=== PATIENT | female | born 1975 | race Caucasian/White ===

== ENCOUNTER 2018-12-20 15:29 | Inpatient (IN) ==
[2018-12-20] MEDS ORDERED: Calcium Gluconate 2,000 MG in 0.9 % Sodium Chloride 100 ML IVPB STA (15:43)
[2018-12-20] MEDS ORDERED: Sodium Bicarbonate 150 MEQ in 0.45 % Sodium Chloride 1,000 ML IVC SCH ×2 (15:45→23:45)
[2018-12-20] MEDS ORDERED: 0.9 % Sodium Chloride 1,000 ML IVC ONE (16:14)
[2018-12-20] MEDS ORDERED: 0.9 % Sodium Chloride 1,000 ML ONE (16:19)
[2018-12-20 16:20] LABS: Basophils % 0.3 %; Eosinophils # 0.1 K/mcL (0.0-0.6); Eosinophils % 1.7 %; Hemoglobin 11.4 g/dL (11.5-15.4); Immature Granulocytes % 0.5 % (0-4); Lymphocytes # 1.7 K/mcL (0.6-4.6); Lymphocytes % 28.1 %; Mean Corpuscular HGB Conc 32.6 g/dL (31.6-35.5); Mean Corpuscular Hemoglobin 28.4 pg (28.0-33.3); Mean Corpuscular Volume 87.3 fL (83.0-100.0); Mean Platelet Volume 8.9 fL (9.4-12.4); Monocytes # 0.3 K/mcL (0.0-1.3); Monocytes % 5.4 %; Neutrophils # 3.8 K/mcL (1.6-8.9); Platelet Count 215 K/mcL (140-400); Red Blood Count 4.01 M/mcL (3.82-4.97); Red Cell Distribution Width 13.6 % (11.5-14.5)
[2018-12-20 16:27] LABS: VBG HCO3 23 mEq/L (21-27); VBG PCO2 52 mmHg (41-51); VBG PH 7.26 pH Units (7.32-7.42); VBG PO2 213 mmHg (25-50)
[2018-12-20 16:27] LABS: INR 1.1
[2018-12-20 16:30] LABS: Activated Partial Thrombo Time 31.2 Seconds (26.0-36.0)
[2018-12-20 16:39] LABS: Acetaminophen < 10 mcg/mL (10-20); Salicylate < 2.5 mg/dL (15.0-30.0)
[2018-12-20 16:42] LABS: BUN/Creatinine Ratio 16 (6-26); Blood Urea Nitrogen 9 mg/dL (6-20); Carbon Dioxide 23 mEq/L (23-29); Chloride 110 mEq/L (98-107); Potassium 3.2 mEq/L (3.5-5.1); Sodium 143 mEq/L (136-145)
[2018-12-20 16:43] LABS: Alanine Aminotransferase 13 Units/L (7-52); Albumin 3.5 g/dL (3.5-5.7); Albumin/Globulin Ratio 1.8 (1.1-2.2); Alkaline Phosphatase 55 Units/L (34-104); Aspartate Amino Transferase 11 Units/L (13-39); Bilirubin,Indirect 0.2 mg/dL (0.0-1.2); Bilirubin,Total 0.2 mg/dL (0.3-1.0); Creatine Kinase 92 Units/L (30-223); Ethanol 56 mg/dL (Less than 10); Glucose 127 mg/dL (70-105); Osmolality,Calculated 296 (280-300); Total Protein 5.5 g/dL (6.4-8.9); eGFR For Non-African Americans > 60 (> 60)
[2018-12-20 16:50] LABS: Bilirubin,Urine Negative (Negative); Blood,Urine Negative (Negative); Clarity,Urine Clear (Clear); Color,Urine Yellow (Yellow); Glucose,Urine (UA) Normal (Normal); Ketones,Urine Negative (Negative); Leukocyte Esterase,Urine Negative (Negative); Nitrite,Urine Negative (Negative); Protein,Urine Negative (Neg-Trace); Urobilinogen,Urine Normal (Normal)
[2018-12-20] MEDS: Norepinephrine 4 MG in D5% in Water 250 ML IVC SCH (16:50)
[2018-12-20 16:55] LABS: Thyroid Stimulating Hormone 2.285 mcIU/mL (0.340-5.600)
[2018-12-20 17:03] LABS: Amphetamine Screen,Urine Negative ng/mL (Cutoff=1000); Barbiturate Screen,Urine Negative ng/mL (Cutoff=200); Benzodiazepines Screen,Urine Positive ng/mL (Cutoff=200); Cannabinoid Screen,Urine Negative ng/mL (Cutoff = 50); Cocaine Screen,Urine Positive ng/mL (Cutoff= 300); Opiate Screen,Urine Negative ng/mL (Cutoff=300); Phencyclidine Screen,Urine Negative ng/mL (Cutoff=25)
--- NOTE | 2018-12-20 18:12 | Emergency Department Note ---
Disposition Clinical Impression: Intentional poisoning by tricyclic antidepressant Intentional benzodiazepine overdose Qualifiers: Encounter type: initial encounter Qualified Code(s): T42.4X2A - Poisoning by benzodiazepines, intentional self-harm, initial encounter Disposition: Admitted As Inpatient Condition: Critical Referrals: NONE,PCP [Primary Care Provider] - Forms: ED Satisfaction Letter Time of Disposition: 19:10 General Adult HPI - General Chief complaint: ED Psychiatric Symptoms Stated complaint: OD Time Seen by Provider: 12/20/18 15:35 Source: EMS Limitations: altered mental status Nursing Notes Reviewed: Yes Vital Signs Reviewed: Yes - History of Present Illness HPI Narrative: 43-year-old female unknown past medical history presented via EMS with suspected overdose. EMS was called to the home where the patient was found unresponsive, family gave EMS 5 empty pill bottle stating they did not know what she took or how much. The empty pill bottles were prescriptions for zolpidem 10 mg, diazepam 5 mg, doxepin 25 mg. EMS reported giving the patient 1 dose of naloxone prior to arrival which should not change her clinical condition. On arrival patient was not responsive to verbal or painful stimuli. Family was not available on arrival for history. Record review provided only documentation from 1 ER visit for abscess. Pain Scale: 0 - Related Data Previous Rx's Medication Instructions Recorded Naproxen [Naprosyn] 500 mg PO BID PRN #30 tablet 06/07/16 traMADol [Ultram] 50 mg PO Q6HR PRN #10 tablet 06/07/16 Ciprofloxacin OPTH Soln [Ciloxan 2 drop LEFT EYE Q4HR #1 bottle 06/20/18 OPTH Soln] Sulfamethoxazole/Trimeth DS 1 each PO BID #14 tablet 12/09/18 [Bactrim DS] cephALEXin [Keflex] 500 mg PO QID #28 capsule 12/09/18 Allergies Allergy/AdvReac Type Severity Reaction Status Date / Time No Known Allergies Allergy Verified 06/07/16 16:08 Limitations: ROS unobtainable due to patients medical condition Past Medical History - Past Medical History Medical history: Reports: no medical history Psychiatric history: Reports: schizophrenia SCHEDULING REPRESENTATIVE history: Reports: no SCHEDULING REPRESENTATIVE history - Social History Smoking Status: Current every day smoker Smokeless Tobacco Status: No Alcohol use: Reports: none Drug use: Reports: cocaine, IV Drug Use Physical Exam - General Limitations: altered mental status General appearance: lethargic - Head Head exam: atraumatic, normocephalic - Eye Eye exam: Present: other (Pupils pinpoint but equal) - ENT ENT exam: mucous membranes moist - Neck Neck exam: Present: normal inspection, trachea midline - Chest Chest inspection: Present: normal inspection, symmetric chest wall rise - Respiratory Respiratory exam: Present: other (Rhonchorous breath sounds diffusely and bilaterally) - Cardiovascular Cardiovascular exam: Present: normal rhythm, tachycardia, normal heart sounds - Abdominal Exam Abdominal exam: Present: soft. Absent: distention - Extremities Exam Extremities exam: Present: other (Multiple track sharma visible in bilateral upper extremities, otherwise normal-appearing extremities) - Neurological Exam Neurological exam: Present: other (Unresponsive to stimuli) - Skin Skin exam: Present: warm, dry Course Course Narrative: Patient unresponsive on arrival secondary to suspected overdose on doxepin, diazepam, zolpidem. Immediate concern was for airway, blood pressure, electrophysiologic changes secondary to tricyclic overdose. On arrival she was breathing on her own with stable blood pressure but no gag reflex and blood pressure was declining. Workup was initiated with stat EKG, ABG, CMP, urine drug screen. Original EKG demonstrated sinus tachycardia with QTC 659. Poison control was contacted who agreed with management plan of immediate bolus of sodium bicarbonate, magnesium, calcium with repeat EKG after medication initiation. Meanwhile the patient's blood pressure continued to decline. In consideration for airway support and blood pressure support decision was made to place right IJ central line secondary to borderline hypotension prior to int ubation. Right IJ CVC was placed without complication and norepinephrine drip was initiated. Repeat EKG demonstrated sinus tachycardia with QTC 486. Meanwhile ABG, BMP demonstrated non-anion gap metabolic acidosis, hypokalemia. Potassium was replaced intravenously, sodium bicarbonate drip was initiated. UDS positive for cocaine, benzodiazepines, alcohol. Patient continued to breathe on her own however without gag reflex and still unresponsive. Decision was made to intubate in order to protect airway. 7.5 ET tube was placed without sedation or paralysis and the patient was connected to ventilator and started on fentanyl drip. Vent settings per attending/respiratory. Vital Signs Temperature 97.2 F L 12/20/18 15:39 Pulse Rate 116 12/20/18 15:39 Respiratory Rate 20 12/20/18 15:39 Blood Pressure 102/57 12/20/18 15:39 O2 Sat by Pulse Oximetry 85 12/20/18 15:39 Temperature 97.2 F L 12/20/18 15:39 Pulse Rate 103 12/20/18 16:40 Respiratory Rate 13 12/20/18 17:26 Blood Pressure 131/88 12/20/18 17:26 O2 Sat by Pulse Oximetry 100 12/20/18 17:26 Oxygen Delivery Oxygen Delivery Non Rebreather Mask Procedures - Central Line Placement Right IJ Central Line Inserted*: Yes Central Line Catheter Replacement*: Yes Central Line Insertion: emergent Procedural Pause: verify patient name and date of , chris and assess the site, assemble equipment and verify supplies, perform hand hygiene Patient Placed on Monitor/Pulse Ox: Yes During the Procedure: clinician is wearing sterile gloves, cap, mask,& gown during insertion, sterile field and sterile technique are maintained, patient's face is covered with drape or mask and wearing a cap, everyone in room is wearing a mask Central Line Prep: Chlorhexidine scrub, sterile drapes applied Prep the Procedure Site: apply chloraprep to the skin using a back and forth scrubbing motion Ultrasound Used for Placement: Yes Central Line Lumen Inserted: triple Post Procedure: sutured in place, good blood return, all ports aspirated, flushed, capped, sterile dressing applied, guide wire removed and visualized Post Procedure X-Ray: tip of catheter in good position Patient Tolerated Procedure: no complications Complications: none Name of Clinician Inserting Central Line: Clifford Menezes Clinician Assisting/Completing Checklist: Josiah Vyas Date: 12/20/18 Time: 18:00 - Intubation Time out performed: Yes sedative: none Laryngoscope: Lucas ET Tube Size: 7.5 ET Tube Uncuffed: No Tube Secured Depth (cm): 24 Tube Secured Location: lips Tube Placement Confirmation: visualized tube passing through cords, equal breath sounds bilaterally, confirmation by capnometry Patient Tolerated Procedure: no complications Intubation Complications: none Medical Decision Making - MDM Narrative Medical decision making narrative: Patient presented unresponsive secondary to suspected overdose on doxepin, zolpidem, benzodiazepines. She presented hemodynamically stable with blood pressure that was declining, was breathing on her own but without gag reflex. Labs and imaging demonstrated non-anion gap metabolic acidosis, prolonged QTC, electrolyte abnormalities. Poison control was contacted, electrolytes were replaced, sodium bicarbonate drip was initiated, patient was intubated, right IJ CVC was placed, norepinephrine drip was initiated. The patient is currently hemodynamically stable, EKG corrected, still unresponsive, on the ventilator, fentanyl/levo/bicarb drip running. Discussed with Dr. Pleitez and Dr. Clay hospitalist who agreed to admit the patient to the ICU. - Lab Data Lab results reviewed: Yes I reviewed the patient's lab results. Result diagrams: 12/20/18 16:01 12/20/18 16:01 Lab Results 12/20/18 12/20/18 12/20/18 Range/Units 16:01 16:01 16:01 WBC 6.0 (4.3-11.1) K/mcL RBC 4.01 (3.82-4.97) M/mcL Hgb 11.4 L (11.5-15.4) g/dL Hct 35.0 L (35.3-44.9) % MCV 87.3 (83.0-100.0) fL MCH 28.4 (28.0-33.3) pg MCHC 32.6 (31.6-35.5) g/dL RDW 13.6 (11.5-14.5) % Plt Count 215 (140-400) K/mcL MPV 8.9 L (9.4-12.4) fL Immature Gran % 0.5 (0-4) % Seg Neutrophils % 64.0 % Lymphocytes % 28.1 % Monocytes % 5.4 % Eosinophils % 1.7 % Basophils % 0.3 % Neutrophils # 3.8 (1.6-8.9) K/mcL Lymphocytes # 1.7 (0.6-4.6) K/mcL Monocytes # 0.3 (0.0-1.3) K/mcL Eosinophils # 0.1 (0.0-0.6) K/mcL Basophils # 0.0 (0.0-0.2) K/mcL PT 12.0 (9.4-12.1) Seconds INR 1.1 APTT 31.2 (26.0-36.0) Seconds Sample Site ABG pH (7.32-7.45) pH Units ABG pCO2 (35-45) mmHg ABG pO2 (85-104) mmHg ABG HCO3 (21-27) mEq/L ABG Total CO2 (20-26) mEq/L ABG O2 Saturation (95-98) % ABG Base Excess (-2 to 3) mEq/L Ameya Test VBG pH (7.32-7.42) pH Units VBG pCO2 (41-51) mmHg VBG pO2 (25-50) mmHg VBG HCO3 (21-27) mEq/L Carboxyhemoglobin (0-5) % Respiration Rate O2 Delivery Device Blood Gas Modality Inspired O2 (1-15=lpm [id number]=%) Tidal Volume cc PEEP cm H2O Sodium 143 (136-145) mEq/L Potassium 3.2 L (3.5-5.1) mEq/L Chloride 110 H (98-107) mEq/L Carbon Dioxide 23 (23-29) mEq/L BUN 9 (6-20) mg/dL Creatinine 0.58 L (0.60-1.20) mg/dL Est GFR ( Amer) > 60 (> 60) Est GFR (Non-Af Amer) > 60 (> 60) BUN/Creatinine Ratio 16 (6-26) Glucose 127 H (70-105) mg/dL Calculated Osmolality 296 (280-300) Calcium 8.0 L (8.6-10.3) mg/dL Total Bilirubin 0.2 L (0.3-1.0) mg/dL Direct Bilirubin 0.0 (0.0-0.2) mg/dL Indirect Bilirubin 0.2 (0.0-1.2) mg/dL AST 11 L (13-39) Units/L ALT 13 (7-52) Units/L Alkaline Phosphatase 55 (34-104) Units/L Creatine Kinase 92 (30-223) Units/L Serum Total Protein 5.5 L (6.4-8.9) g/dL Albumin 3.5 (3.5-5.7) g/dL Globulin 2.0 L (2.4-3.5) g/dL Albumin/Globulin Ratio 1.8 (1.1-2.2) TSH 2.285 (0.340-5.600) mcIU/mL Urine Color (Yellow) Urine Clarity (Clear) Urine pH (5.0-8.0) pH Units Ur Specific [place] (1.010-1.025) Urine Protein (Neg-Trace) mg/dL Urine Glucose (UA) (Normal) mg/dL Urine Ketones (Negative) mg/dL Urine Blood (Negative) Urine Nitrite (Negative) Urine Bilirubin (Negative) Urine Urobilinogen (Normal) mg/dL Ur Leukocyte Esterase (Negative) Ur Culture Indicated? (NO) Urine Test (Negative) Salicylates (15.0-30.0) mg/dL Urine Opiates Screen (Umoeyp=574) ng/mL Acetaminophen (10-20) mcg/mL Ur Barbiturates Screen (Wsnbdr=943) ng/mL Ur Phencyclidine Scrn (Cutoff=25) ng/mL Ur Amphetamines Screen (Qaulii=6962) ng/mL U Benzodiazepines Scrn (Khglrm=057) ng/mL Urine Cocaine Screen (Cutoff= 300) ng/mL U Marijuana (THC) Screen (Cutoff = 50) ng/mL Ur Drug Screen Interp Ethyl Alcohol 56 H (Less than 10) mg/dL 12/20/18 12/20/18 12/20/18 Range/Units 16:01 16:01 16:24 WBC (4.3-11.1) K/mcL RBC (3.82-4.97) M/mcL Hgb (11.5-15.4) g/dL Hct (35.3-44.9) % MCV (83.0-100.0) fL MCH (28.0-33.3) pg MCHC (31.6-35.5) g/dL RDW (11.5-14.5) % Plt Count (140-400) K/mcL MPV (9.4-12.4) fL Immature Gran % (0-4) % Seg Neutrophils % % Lymphocytes % % Monocytes % % Eosinophils % % Basophils % % Neutrophils # (1.6-8.9) K/mcL Lymphocytes # (0.6-4.6) K/mcL Monocytes # (0.0-1.3) K/mcL Eosinophils # (0.0-0.6) K/mcL Basophils # (0.0-0.2) K/mcL PT (9.4-12.1) Seconds INR APTT (26.0-36.0) Seconds Sample Site ABG pH (7.32-7.45) pH Units ABG pCO2 (35-45) mmHg ABG pO2 (85-104) mmHg ABG HCO3 (21-27) mEq/L ABG Total CO2 (20-26) mEq/L ABG O2 Saturation (95-98) % ABG Base Excess (-2 to 3) mEq/L Ameya Test VBG pH 7.26 L (7.32-7.42) pH Units VBG pCO2 52 H (41-51) mmHg VBG pO2 213 H (25-50) mmHg VBG HCO3 23 (21-27) mEq/L Carboxyhemoglobin 6.7 H (0-5) % Respiration Rate O2 Delivery Device Blood Gas Modality Inspired O2 (1-15=lpm ou01-769=%) Tidal Volume cc PEEP cm H2O Sodium (136-145) mEq/L Potassium (3.5-5.1) mEq/L Chloride (98-107) mEq/L Carbon Dioxide (23-29) mEq/L BUN (6-20) mg/dL Creatinine (0.60-1.20) mg/dL Est GFR ( Amer) (> 60) Est GFR (Non-Af Amer) (> 60) BUN/Creatinine Ratio (6-26) Glucose (70-105) mg/dL Calculated Osmolality (280-300) Calcium (8.6-10.3) mg/dL Total Bilirubin (0.3-1.0) mg/dL Direct Bilirubin (0.0-0.2) mg/dL Indirect Bilirubin (0.0-1.2) mg/dL AST (13-39) Units/L ALT (7-52) Units/L Alkaline Phosphatase (34-104) Units/L Creatine Kinase (30-223) Units/L Serum Total Protein (6.4-8.9) g/dL Albumin (3.5-5.7) g/dL Globulin (2.4-3.5) g/dL Albumin/Globulin Ratio (1.1-2.2) TSH (0.340-5.600) mcIU/mL Urine Color (Yellow) Urine Clarity (Clear) Urine pH (5.0-8.0) pH Units Ur Specific [place] (1.010-1.025) Urine Protein (Neg-Trace) mg/dL Urine Glucose (UA) (Normal) mg/dL Urine Ketones (Negative) mg/dL Urine Blood (Negative) Urine Nitrite (Negative) Urine Bilirubin (Negative) Urine Urobilinogen (Normal) mg/dL Ur Leukocyte Esterase (Negative) Ur Culture Indicated? (NO) Urine Test (Negative) Salicylates < 2.5 L (15.0-30.0) mg/dL Urine Opiates Screen (Gvhneb=625) ng/mL Acetaminophen < 10 L (10-20) mcg/mL Ur Barbiturates Screen (Pupotz=022) ng/mL Ur Phencyclidine Scrn (Cutoff=25) ng/mL Ur Amphetamines Screen (Lmrzfs=3898) ng/mL U Benzodiazepines Scrn (Tspsjt=682) ng/mL Urine Cocaine Screen (Cutoff= 300) ng/mL U Marijuana (THC) Screen (Cutoff = 50) ng/mL Ur Drug Screen Interp Ethyl Alcohol (Less than 10) mg/dL 12/20/18 12/20/18 12/20/18 Range/Units 16:30 16:38 16:38 WBC (4.3-11.1) K/mcL RBC (3.82-4.97) M/mcL Hgb (11.5-15.4) g/dL Hct (35.3-44.9) % MCV (83.0-100.0) fL MCH (28.0-33.3) pg MCHC (31.6-35.5) g/dL RDW (11.5-14.5) % Plt Count (140-400) K/mcL MPV (9.4-12.4) fL Immature Gran % (0-4) % Seg Neutrophils % % Lymphocytes % % Monocytes % % Eosinophils % % Basophils % % Neutrophils # (1.6-8.9) K/mcL Lymphocytes # (0.6-4.6) K/mcL Monocytes # (0.0-1.3) K/mcL Eosinophils # (0.0-0.6) K/mcL Basophils # (0.0-0.2) K/mcL PT (9.4-12.1) Seconds INR APTT (26.0-36.0) Seconds Sample Site ABG pH (7.32-7.45) pH Units ABG pCO2 (35-45) mmHg ABG pO2 (85-104) mmHg ABG HCO3 (21-27) mEq/L ABG Total CO2 (20-26) mEq/L ABG O2 Saturation (95-98) % ABG Base Excess (-2 to 3) mEq/L Ameya Test VBG pH (7.32-7.42) pH Units VBG pCO2 (41-51) mmHg VBG pO2 (25-50) mmHg VBG HCO3 (21-27) mEq/L Carboxyhemoglobin (0-5) % Respiration Rate O2 Delivery Device Blood Gas Modality Inspired O2 (1-15=lpm za23-446=%) Tidal Volume cc PEEP cm H2O Sodium (136-145) mEq/L Potassium (3.5-5.1) mEq/L Chloride (98-107) mEq/L Carbon Dioxide (23-29) mEq/L BUN (6-20) mg/dL Creatinine (0.60-1.20) mg/dL Est GFR ( Amer) (> 60) Est GFR (Non-Af Amer) (> 60) BUN/Creatinine Ratio (6-26) Glucose (70-105) mg/dL Calculated Osmolality (280-300) Calcium (8.6-10.3) mg/dL Total Bilirubin (0.3-1.0) mg/dL Direct Bilirubin (0.0-0.2) mg/dL Indirect Bilirubin (0.0-1.2) mg/dL AST (13-39) Units/L ALT (7-52) Units/L Alkaline Phosphatase (34-104) Units/L Creatine Kinase (30-223) Units/L Serum Total Protein (6.4-8.9) g/dL Albumin (3.5-5.7) g/dL Globulin (2.4-3.5) g/dL Albumin/Globulin Ratio (1.1-2.2) TSH (0.340-5.600) mcIU/mL Urine Color Yellow (Yellow) Urine Clarity Clear (Clear) Urine pH 6.0 (5.0-8.0) pH Units Ur Specific [place] 1.010 (1.010-1.025) Urine Protein Negative (Neg-Trace) mg/dL Urine Glucose (UA) Normal (Normal) mg/dL Urine Ketones Negative (Negative) mg/dL Urine Blood Negative (Negative) Urine Nitrite Negative (Negative) Urine Bilirubin Negative (Negative) Urine Urobilinogen Normal (Normal) mg/dL Ur Leukocyte Esterase Negative (Negative) Ur Culture Indicated? NO (NO) Urine Test Negative (Negative) Salicylates (15.0-30.0) mg/dL Urine Opiates Screen Negative (Etzwtp=729) ng/mL Acetaminophen (10-20) mcg/mL Ur Barbiturates Screen Negative (Qyadzk=460) ng/mL Ur Phencyclidine Scrn Negative (Cutoff=25) ng/mL Ur Amphetamines Screen Negative (Cufrgo=8707) ng/mL U Benzodiazepines Scrn Positive H (Pdrklv=019) ng/mL Urine Cocaine Screen Positive H (Cutoff= 300) ng/mL U Marijuana (THC) Screen Negative (Cutoff = 50) ng/mL Ur Drug Screen Interp See Below Ethyl Alcohol (Less than 10) mg/dL 12/20/18 Range/Units 18:29 WBC (4.3-11.1) K/mcL RBC (3.82-4.97) M/mcL Hgb (11.5-15.4) g/dL Hct (35.3-44.9) % MCV (83.0-100.0) fL MCH (28.0-33.3) pg MCHC (31.6-35.5) g/dL RDW (11.5-14.5) % Plt Count (140-400) K/mcL MPV (9.4-12.4) fL Immature Gran % (0-4) % Seg Neutrophils % % Lymphocytes % % Monocytes % % Eosinophils % % Basophils % % Neutrophils # (1.6-8.9) K/mcL Lymphocytes # (0.6-4.6) K/mcL Monocytes # (0.0-1.3) K/mcL Eosinophils # (0.0-0.6) K/mcL Basophils # (0.0-0.2) K/mcL PT (9.4-12.1) Seconds INR APTT (26.0-36.0) Seconds Sample Site R Brach ABG pH 7.34 (7.32-7.45) pH Units ABG pCO2 46 H (35-45) mmHg ABG pO2 80 L (85-104) mmHg ABG HCO3 25 (21-27) mEq/L ABG Total CO2 26 (20-26) mEq/L ABG O2 Saturation 95 (95-98) % ABG Base Excess -1 (-2 to 3) mEq/L Ameya Test N/A VBG pH (7.32-7.42) pH Units VBG pCO2 (41-51) mmHg VBG pO2 (25-50) mmHg VBG HCO3 (21-27) mEq/L Carboxyhemoglobin (0-5) % Respiration Rate 12 O2 Delivery Device Adult Vent Blood Gas Modality VC Inspired O2 40.0 (1-15=lpm az41-353=%) Tidal Volume 500 cc PEEP 5 cm H2O Sodium (136-145) mEq/L Potassium (3.5-5.1) mEq/L Chloride (98-107) mEq/L Carbon Dioxide (23-29) mEq/L BUN (6-20) mg/dL Creatinine (0.60-1.20) mg/dL Est GFR ( Amer) (> 60) Est GFR (Non-Af Amer) (> 60) BUN/Creatinine Ratio (6-26) Glucose (70-105) mg/dL Calculated Osmolality (280-300) Calcium (8.6-10.3) mg/dL Total Bilirubin (0.3-1.0) mg/dL Direct Bilirubin (0.0-0.2) mg/dL Indirect Bilirubin (0.0-1.2) mg/dL AST (13-39) Units/L ALT (7-52) Units/L Alkaline Phosphatase (34-104) Units/L Creatine Kinase (30-223) Units/L Serum Total Protein (6.4-8.9) g/dL Albumin (3.5-5.7) g/dL Globulin (2.4-3.5) g/dL Albumin/Globulin Ratio (1.1-2.2) TSH (0.340-5.600) mcIU/mL Urine Color (Yellow) Urine Clarity (Clear) Urine pH (5.0-8.0) pH Units Ur Specific [place] (1.010-1.025) Urine Protein (Neg-Trace) mg/dL Urine Glucose (UA) (Normal) mg/dL Urine Ketones (Negative) mg/dL Urine Blood (Negative) Urine Nitrite (Negative) Urine Bilirubin (Negative) Urine Urobilinogen (Normal) mg/dL Ur Leukocyte Esterase (Negative) Ur Culture Indicated? (NO) Urine Test (Negative) Salicylates (15.0-30.0) mg/dL Urine Opiates Screen (Dhmkfc=435) ng/mL Acetaminophen (10-20) mcg/mL Ur Barbiturates Screen (Rcrpkk=787) ng/mL Ur Phencyclidine Scrn (Cutoff=25) ng/mL Ur Amphetamines Screen (Ldtbuz=9150) ng/mL U Benzodiazepines Scrn (Llkjrt=129) ng/mL Urine Cocaine Screen (Cutoff= 300) ng/mL U Marijuana (THC) Screen (Cutoff = 50) ng/mL Ur Drug Screen Interp Ethyl Alcohol (Less than 10) mg/dL - Radiology Data Radiology results reviewed: Yes I reviewed the patient's radiology results. Head CT 12/20/18 15:35 IMPRESSION: No acute intracranial abnormality. D/ / Maik Gonzalez MD / Maik Gonzalez MD Interpreting Provider: Maik Gonzalez MD Chest X-Ray 12/20/18 17:30 IMPRESSION: 1. Endotracheal tube tip within the right mainstem bronchus. Recommend retraction of at least 5 cm. 2. Mild interstitial prominence. Critical results were called by Dr. Darcy Cornelius MD to Sourav Mark DO on 12/20/2018 at 17:47. D/ / Darcy Cornelius MD / Darcy Cornelius MD Interpreting Provider: Darcy Cornelius MD - EKG Data EKG #1 EKG attestation: Yes I reviewed and interpreted this EKG. EKG #2 EKG attestation: Yes I reviewed and interpreted this EKG. EKG results narrative: Repeat EKG 12/20/18 at 17:14. Sinus tachycardia, heart rate 103, W[place] 150, QRS 112, QTC 486. No ST elevation or depression, T-wave inversions or other signs of acute ischemia. Reviewed myself and the attending. Attestation Statement - Attestation Attestation: I, Sourav Mark DO, examined this patient [id number] and my medical decision-making was reviewed with Rajiv Menezes PGY-1, Resident Physician. I agree with the documented findings, disposition and treatment plan as described except to the extent set forth below. I personally supervised and was present for the dotson/critical portions of the procedures completed by the resident documented below. Please see my progress notes for details.
[2018-12-20] MEDS: FentaNYL (PF) 1,000 MCG in 0.9 % Sodium Chloride 80 ML IVC SCH (18:18)
[2018-12-20 18:33] LABS: ABG Base Excess -1 mEq/L (-2 to 3); ABG HCO3 25 mEq/L (21-27); ABG Oxygen Saturation 95 % (95-98); ABG PCO2 46 mmHg (35-45); ABG PH 7.34 pH Units (7.32-7.45); ABG PO2 80 mmHg (85-104); ABG TCO2 26 mEq/L (20-26); Blood Gas Modality VC; Blood Gas PEEP 5 cm H2O; Blood Gas Respiration Rate 12; Blood Gas VT 500 cc
--- NOTE | 2018-12-20 18:58 | Emergency Department Note ---
Disposition Clinical Impression: Intentional poisoning by tricyclic antidepressant, Suicidal ideation Intentional benzodiazepine overdose Qualifiers: Encounter type: initial encounter Qualified Code(s): T42.4X2A - Poisoning by benzodiazepines, intentional self-harm, initial encounter Disposition: Admitted As Inpatient Condition: Critical Time of Disposition: 19:34 General Adult HPI - General Chief complaint: ED Psychiatric Symptoms Stated complaint: OD Time Seen by Provider: 12/20/18 15:35 Source: EMS Limitations: altered mental status - History of Present Illness Pain Scale: 0 - Related Data Previous Rx's Medication Instructions Recorded Naproxen [Naprosyn] 500 mg PO BID PRN #30 tablet 06/07/16 traMADol [Ultram] 50 mg PO Q6HR PRN #10 tablet 06/07/16 Ciprofloxacin OPTH Soln [Ciloxan 2 drop LEFT EYE Q4HR #1 bottle 06/20/18 OPTH Soln] Sulfamethoxazole/Trimeth DS 1 each PO BID #14 tablet 12/09/18 [Bactrim DS] cephALEXin [Keflex] 500 mg PO QID #28 capsule 12/09/18 Allergies Allergy/AdvReac Type Severity Reaction Status Date / Time No Known Allergies Allergy Verified 06/07/16 16:08 Past Medical History - Past Medical History Medical history: Reports: no medical history Psychiatric history: Reports: schizophrenia 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 ASSISTANT history: Reports: no CHEMIST ASSISTANT history - Social History Smoking Status: Current every day smoker Smokeless Tobacco Status: No Alcohol use: Reports: none Drug use: Reports: cocaine, IV Drug Use Physical Exam - General Limitations: altered mental status General appearance: lethargic Course Vital Signs Temperature 97.2 F L 12/20/18 15:39 Pulse Rate 116 12/20/18 15:39 Respiratory Rate 20 12/20/18 15:39 Blood Pressure 102/57 12/20/18 15:39 O2 Sat by Pulse Oximetry 85 12/20/18 15:39 Temperature 97.2 F L 12/20/18 15:39 Pulse Rate 110 12/20/18 17:35 Respiratory Rate 17 12/20/18 17:35 Blood Pressure 126/79 12/20/18 17:35 O2 Sat by Pulse Oximetry 100 12/20/18 17:35 Oxygen Delivery Oxygen Delivery Ventilator Medical Decision Making - Lab Data Result diagrams: 12/20/18 16:01 12/20/18 16:01 Lab Results 12/20/18 12/20/18 12/20/18 Range/Units 16:01 16:01 16:01 WBC 6.0 (4.3-11.1) K/mcL RBC 4.01 (3.82-4.97) M/mcL Hgb 11.4 L (11.5-15.4) g/dL Hct 35.0 L (35.3-44.9) % MCV 87.3 (83.0-100.0) fL MCH 28.4 (28.0-33.3) pg MCHC 32.6 (31.6-35.5) g/dL RDW 13.6 (11.5-14.5) % Plt Count 215 (140-400) K/mcL MPV 8.9 L (9.4-12.4) fL Immature Gran % 0.5 (0-4) % Seg Neutrophils % 64.0 % Lymphocytes % 28.1 % Monocytes % 5.4 % Eosinophils % 1.7 % Basophils % 0.3 % Neutrophils # 3.8 (1.6-8.9) K/mcL Lymphocytes # 1.7 (0.6-4.6) K/mcL Monocytes # 0.3 (0.0-1.3) K/mcL Eosinophils # 0.1 (0.0-0.6) K/mcL Basophils # 0.0 (0.0-0.2) K/mcL PT 12.0 (9.4-12.1) Seconds INR 1.1 APTT 31.2 (26.0-36.0) Seconds Sample Site ABG pH (7.32-7.45) pH Units ABG pCO2 (35-45) mmHg ABG pO2 (85-104) mmHg ABG HCO3 (21-27) mEq/L ABG Total CO2 (20-26) mEq/L ABG O2 Saturation (95-98) % ABG Base Excess (-2 to 3) mEq/L Ameya Test VBG pH (7.32-7.42) pH Units VBG pCO2 (41-51) mmHg VBG pO2 (25-50) mmHg VBG HCO3 (21-27) mEq/L Carboxyhemoglobin (0-5) % Respiration Rate O2 Delivery Device Blood Gas Modality Inspired O2 (1-15=lpm ad78-809=%) Tidal Volume cc PEEP cm H2O Sodium 143 (136-145) mEq/L Potassium 3.2 L (3.5-5.1) mEq/L Chloride 110 H (98-107) mEq/L Carbon Dioxide 23 (23-29) mEq/L BUN 9 (6-20) mg/dL Creatinine 0.58 L (0.60-1.20) mg/dL Est GFR ( Amer) > 60 (> 60) Est GFR (Non-Af Amer) > 60 (> 60) BUN/Creatinine Ratio 16 (6-26) Glucose 127 H (70-105) mg/dL Calculated Osmolality 296 (280-300) Calcium 8.0 L (8.6-10.3) mg/dL Total Bilirubin 0.2 L (0.3-1.0) mg/dL Direct Bilirubin 0.0 (0.0-0.2) mg/dL Indirect Bilirubin 0.2 (0.0-1.2) mg/dL AST 11 L (13-39) Units/L ALT 13 (7-52) Units/L Alkaline Phosphatase 55 (34-104) Units/L Creatine Kinase 92 (30-223) Units/L Serum Total Protein 5.5 L (6.4-8.9) g/dL Albumin 3.5 (3.5-5.7) g/dL Globulin 2.0 L (2.4-3.5) g/dL Albumin/Globulin Ratio 1.8 (1.1-2.2) TSH 2.285 (0.340-5.600) mcIU/mL Urine Color (Yellow) Urine Clarity (Clear) Urine pH (5.0-8.0) pH Units Ur Specific [facility] (1.010-1.025) Urine Protein (Neg-Trace) mg/dL Urine Glucose (UA) (Normal) mg/dL Urine Ketones (Negative) mg/dL Urine Blood (Negative) Urine Nitrite (Negative) Urine Bilirubin (Negative) Urine Urobilinogen (Normal) mg/dL Ur Leukocyte Esterase (Negative) Ur Culture Indicated? (NO) Urine Test (Negative) Salicylates (15.0-30.0) mg/dL Urine Opiates Screen (Rgvere=696) ng/mL Acetaminophen (10-20) mcg/mL Ur Barbiturates Screen (Vvwbjj=840) ng/mL Ur Phencyclidine Scrn (Cutoff=25) ng/mL Ur Amphetamines Screen (Qwxejj=2216) ng/mL U Benzodiazepines Scrn (Vbdvzc=560) ng/mL Urine Cocaine Screen (Cutoff= 300) ng/mL U Marijuana (THC) Screen (Cutoff = 50) ng/mL Ur Drug Screen Interp Ethyl Alcohol 56 H (Less than 10) mg/dL 12/20/18 12/20/18 12/20/18 Range/Units 16:01 16:01 16:24 WBC (4.3-11.1) K/mcL RBC (3.82-4.97) M/mcL Hgb (11.5-15.4) g/dL Hct (35.3-44.9) % MCV (83.0-100.0) fL MCH (28.0-33.3) pg MCHC (31.6-35.5) g/dL RDW (11.5-14.5) % Plt Count (140-400) K/mcL MPV (9.4-12.4) fL Immature Gran % (0-4) % Seg Neutrophils % % Lymphocytes % % Monocytes % % Eosinophils % % Basophils % % Neutrophils # (1.6-8.9) K/mcL Lymphocytes # (0.6-4.6) K/mcL Monocytes # (0.0-1.3) K/mcL Eosinophils # (0.0-0.6) K/mcL Basophils # (0.0-0.2) K/mcL PT (9.4-12.1) Seconds INR APTT (26.0-36.0) Seconds Sample Site ABG pH (7.32-7.45) pH Units ABG pCO2 (35-45) mmHg ABG pO2 (85-104) mmHg ABG HCO3 (21-27) mEq/L ABG Total CO2 (20-26) mEq/L ABG O2 Saturation (95-98) % ABG Base Excess (-2 to 3) mEq/L Ameya Test VBG pH 7.26 L (7.32-7.42) pH Units VBG pCO2 52 H (41-51) mmHg VBG pO2 213 H (25-50) mmHg VBG HCO3 23 (21-27) mEq/L Carboxyhemoglobin 6.7 H (0-5) % Respiration Rate O2 Delivery Device Blood Gas Modality Inspired O2 (1-15=lpm lo16-520=%) Tidal Volume cc PEEP cm H2O Sodium (136-145) mEq/L Potassium (3.5-5.1) mEq/L Chloride (98-107) mEq/L Carbon Dioxide (23-29) mEq/L BUN (6-20) mg/dL Creatinine (0.60-1.20) mg/dL Est GFR ( Amer) (> 60) Est GFR (Non-Af Amer) (> 60) BUN/Creatinine Ratio (6-26) Glucose (70-105) mg/dL Calculated Osmolality (280-300) Calcium (8.6-10.3) mg/dL Total Bilirubin (0.3-1.0) mg/dL Direct Bilirubin (0.0-0.2) mg/dL Indirect Bilirubin (0.0-1.2) mg/dL AST (13-39) Units/L ALT (7-52) Units/L Alkaline Phosphatase (34-104) Units/L Creatine Kinase (30-223) Units/L Serum Total Protein (6.4-8.9) g/dL Albumin (3.5-5.7) g/dL Globulin (2.4-3.5) g/dL Albumin/Globulin Ratio (1.1-2.2) TSH (0.340-5.600) mcIU/mL Urine Color (Yellow) Urine Clarity (Clear) Urine pH (5.0-8.0) pH Units Ur Specific [facility] (1.010-1.025) Urine Protein (Neg-Trace) mg/dL Urine Glucose (UA) (Normal) mg/dL Urine Ketones (Negative) mg/dL Urine Blood (Negative) Urine Nitrite (Negative) Urine Bilirubin (Negative) Urine Urobilinogen (Normal) mg/dL Ur Leukocyte Esterase (Negative) Ur Culture Indicated? (NO) Urine Test (Negative) Salicylates < 2.5 L (15.0-30.0) mg/dL Urine Opiates Screen (Dpdsnc=311) ng/mL Acetaminophen < 10 L (10-20) mcg/mL Ur Barbiturates Screen (Zchdxy=488) ng/mL Ur Phencyclidine Scrn (Cutoff=25) ng/mL Ur Amphetamines Screen (Ihwomb=6745) ng/mL U Benzodiazepines Scrn (Xvbtpn=649) ng/mL Urine Cocaine Screen (Cutoff= 300) ng/mL U Marijuana (THC) Screen (Cutoff = 50) ng/mL Ur Drug Screen Interp Ethyl Alcohol (Less than 10) mg/dL 12/20/18 12/20/18 12/20/18 Range/Units 16:30 16:38 16:38 WBC (4.3-11.1) K/mcL RBC (3.82-4.97) M/mcL Hgb (11.5-15.4) g/dL Hct (35.3-44.9) % MCV (83.0-100.0) fL MCH (28.0-33.3) pg MCHC (31.6-35.5) g/dL RDW (11.5-14.5) % Plt Count (140-400) K/mcL MPV (9.4-12.4) fL Immature Gran % (0-4) % Seg Neutrophils % % Lymphocytes % % Monocytes % % Eosinophils % % Basophils % % Neutrophils # (1.6-8.9) K/mcL Lymphocytes # (0.6-4.6) K/mcL Monocytes # (0.0-1.3) K/mcL Eosinophils # (0.0-0.6) K/mcL Basophils # (0.0-0.2) K/mcL PT (9.4-12.1) Seconds INR APTT (26.0-36.0) Seconds Sample Site ABG pH (7.32-7.45) pH Units ABG pCO2 (35-45) mmHg ABG pO2 (85-104) mmHg ABG HCO3 (21-27) mEq/L ABG Total CO2 (20-26) mEq/L ABG O2 Saturation (95-98) % ABG Base Excess (-2 to 3) mEq/L Ameya Test VBG pH (7.32-7.42) pH Units VBG pCO2 (41-51) mmHg VBG pO2 (25-50) mmHg VBG HCO3 (21-27) mEq/L Carboxyhemoglobin (0-5) % Respiration Rate O2 Delivery Device Blood Gas Modality Inspired O2 (1-15=lpm ag84-393=%) Tidal Volume cc PEEP cm H2O Sodium (136-145) mEq/L Potassium (3.5-5.1) mEq/L Chloride (98-107) mEq/L Carbon Dioxide (23-29) mEq/L BUN (6-20) mg/dL Creatinine (0.60-1.20) mg/dL Est GFR ( Amer) (> 60) Est GFR (Non-Af Amer) (> 60) BUN/Creatinine Ratio (6-26) Glucose (70-105) mg/dL Calculated Osmolality (280-300) Calcium (8.6-10.3) mg/dL Total Bilirubin (0.3-1.0) mg/dL Direct Bilirubin (0.0-0.2) mg/dL Indirect Bilirubin (0.0-1.2) mg/dL AST (13-39) Units/L ALT (7-52) Units/L Alkaline Phosphatase (34-104) Units/L Creatine Kinase (30-223) Units/L Serum Total Protein (6.4-8.9) g/dL Albumin (3.5-5.7) g/dL Globulin (2.4-3.5) g/dL Albumin/Globulin Ratio (1.1-2.2) TSH (0.340-5.600) mcIU/mL Urine Color Yellow (Yellow) Urine Clarity Clear (Clear) Urine pH 6.0 (5.0-8.0) pH Units Ur Specific [facility] 1.010 (1.010-1.025) Urine Protein Negative (Neg-Trace) mg/dL Urine Glucose (UA) Normal (Normal) mg/dL Urine Ketones Negative (Negative) mg/dL Urine Blood Negative (Negative) Urine Nitrite Negative (Negative) Urine Bilirubin Negative (Negative) Urine Urobilinogen Normal (Normal) mg/dL Ur Leukocyte Esterase Negative (Negative) Ur Culture Indicated? NO (NO) Urine Test Negative (Negative) Salicylates (15.0-30.0) mg/dL Urine Opiates Screen Negative (Tokglr=705) ng/mL Acetaminophen (10-20) mcg/mL Ur Barbiturates Screen Negative (Heqwvk=583) ng/mL Ur Phencyclidine Scrn Negative (Cutoff=25) ng/mL Ur Amphetamines Screen Negative (Isoqzq=8171) ng/mL U Benzodiazepines Scrn Positive H (Werlpv=290) ng/mL Urine Cocaine Screen Positive H (Cutoff= 300) ng/mL U Marijuana (THC) Screen Negative (Cutoff = 50) ng/mL Ur Drug Screen Interp See Below Ethyl Alcohol (Less than 10) mg/dL 12/20/18 Range/Units 18:29 WBC (4.3-11.1) K/mcL RBC (3.82-4.97) M/mcL Hgb (11.5-15.4) g/dL Hct (35.3-44.9) % MCV (83.0-100.0) fL MCH (28.0-33.3) pg MCHC (31.6-35.5) g/dL RDW (11.5-14.5) % Plt Count (140-400) K/mcL MPV (9.4-12.4) fL Immature Gran % (0-4) % Seg Neutrophils % % Lymphocytes % % Monocytes % % Eosinophils % % Basophils % % Neutrophils # (1.6-8.9) K/mcL Lymphocytes # (0.6-4.6) K/mcL Monocytes # (0.0-1.3) K/mcL Eosinophils # (0.0-0.6) K/mcL Basophils # (0.0-0.2) K/mcL PT (9.4-12.1) Seconds INR APTT (26.0-36.0) Seconds Sample Site R Brach ABG pH 7.34 (7.32-7.45) pH Units ABG pCO2 46 H (35-45) mmHg ABG pO2 80 L (85-104) mmHg ABG HCO3 25 (21-27) mEq/L ABG Total CO2 26 (20-26) mEq/L ABG O2 Saturation 95 (95-98) % ABG Base Excess -1 (-2 to 3) mEq/L Ameya Test N/A VBG pH (7.32-7.42) pH Units VBG pCO2 (41-51) mmHg VBG pO2 (25-50) mmHg VBG HCO3 (21-27) mEq/L Carboxyhemoglobin (0-5) % Respiration Rate 12 O2 Delivery Device Adult Vent Blood Gas Modality VC Inspired O2 40.0 (1-15=lpm qw43-015=%) Tidal Volume 500 cc PEEP 5 cm H2O Sodium (136-145) mEq/L Potassium (3.5-5.1) mEq/L Chloride (98-107) mEq/L Carbon Dioxide (23-29) mEq/L BUN (6-20) mg/dL Creatinine (0.60-1.20) mg/dL Est GFR ( Amer) (> 60) Est GFR (Non-Af Amer) (> 60) BUN/Creatinine Ratio (6-26) Glucose (70-105) mg/dL Calculated Osmolality (280-300) Calcium (8.6-10.3) mg/dL Total Bilirubin (0.3-1.0) mg/dL Direct Bilirubin (0.0-0.2) mg/dL Indirect Bilirubin (0.0-1.2) mg/dL AST (13-39) Units/L ALT (7-52) Units/L Alkaline Phosphatase (34-104) Units/L Creatine Kinase (30-223) Units/L Serum Total Protein (6.4-8.9) g/dL Albumin (3.5-5.7) g/dL Globulin (2.4-3.5) g/dL Albumin/Globulin Ratio (1.1-2.2) TSH (0.340-5.600) mcIU/mL Urine Color (Yellow) Urine Clarity (Clear) Urine pH (5.0-8.0) pH Units Ur Specific [facility] (1.010-1.025) Urine Protein (Neg-Trace) mg/dL Urine Glucose (UA) (Normal) mg/dL Urine Ketones (Negative) mg/dL Urine Blood (Negative) Urine Nitrite (Negative) Urine Bilirubin (Negative) Urine Urobilinogen (Normal) mg/dL Ur Leukocyte Esterase (Negative) Ur Culture Indicated? (NO) Urine Test (Negative) Salicylates (15.0-30.0) mg/dL Urine Opiates Screen (Hjfoyr=728) ng/mL Acetaminophen (10-20) mcg/mL Ur Barbiturates Screen (Qstncl=974) ng/mL Ur Phencyclidine Scrn (Cutoff=25) ng/mL Ur Amphetamines Screen (Wnqitd=2657) ng/mL U Benzodiazepines Scrn (Yxadub=947) ng/mL Urine Cocaine Screen (Cutoff= 300) ng/mL U Marijuana (THC) Screen (Cutoff = 50) ng/mL Ur Drug Screen Interp Ethyl Alcohol (Less than 10) mg/dL Critical Care Time Critical Care Time: Yes Total Critical Care Time: 70 Attestation: Critical care performed: Time is exclusive of separately billable procedures. Time includes: direct patient care, patient reassessment, coordination of patient care, interpretation of data (laboratory data, radiology data, and respiratory data), review of patient's medical records, medical consultation and documentation of patient care. Procedures included in critical care time: Procedures excluded from critical care time: Attestation Statement - Attestation Attestation: I, Sourav Mark DO, examined this patient [id number] and my medical decision-making was reviewed with Rajiv Menezes PGY-1, Resident Physician. I agree with the documented findings, disposition and treatment plan as described except to the extent set forth below. I personally supervised and was present for the dotson/critical portions of the procedures completed by the resident documented below. Please see my progress notes for details. 43-year-old female presents emergency room with complaint and described presentation of overdose. Multiple bottles of medication were sent and with her by EMS. from the patient with a suicide note next to her and multiple bottles of pills in her possession. Patient has a history of suicide attempt and substance abuse in the past. No other information is provided except for vital signs and Accu-Chek during transport. On arrival here the patient is been placed on oxygen and has a nasal oral airway in place. She is breathing spont aneously on her own. Her pulse ox is remain stable. IV access is maintained in the left arm. Fluids were infusing. On physical exam her vital signs reviewed. Her head is atraumatic pupils are equal and reactive. 2 mg of Narcan were given in transport. Oral mucosa is patent. Trachea is midline. No injury or deformity to the neck. Lungs are clear heart is regular. Abdomen is soft. Heart is tachycardia but otherwise no other abnormality. Extremities otherwise normal. No visible signs of trauma or injury to the torso and extremities. She has had visible signs of track sharma to the arm with her history of substance abuse. Consideration for ingestion of TCA, benzodiazepines and other polysubstance presentations is noted. EKG was collected and the patient did have a prolonged QTC. Some of this was the underlying P wave laying in the T wave. This is reviewed by myself and documentation the resident physician's note. Labs including full workup for infectious etiology and sub stance abuse will be completed. CT imaging the head and chest x-ray are ordered. IV access to be obtained while patient is monitored closely and then expect intubation to be completed. Oxygen by nonrebreather mask will be placed to help with symptomatic control nitrogen washout. Patient is otherwise stable. Family was informed of the potential critical nature of her presentation and disposition to be determined. See detailed documentation the physical exam, medical intervention, medical decision-making and disposition in the resident physician's note. No critical care pad the patient's treatment course at this time. 1745 Patient is profoundly prolonged QTC. Bicarbonate, calcium, magnesium of been provided as well as a bicarbonate drip ordered. Patient is still not required any sedation. Central line access was obtained secondary to the patient requiring blood pressure support. Her blood pressures were showing low systolic values during the initial presentation. Right IJ central line is completed by the resident physician under my direct supervision. As independently available throughout the entire procedure monitored closely. The placement was confirmed by x-ray. Infusion of norepinephrine as well as the bicarbonate were started through the central line to help maintain the patient's pressure at this time. Intubation was completed by the resident physician as well by direct laryngoscopy with no complications. ET tube was placed. Bilateral breath sounds were noted because patient is breathing on her own. No paralytic or sedative medications were utilized at this time. The ETT was prepped 4 cm below the chichi so 0 extracted 4 cm without any issue. Patient has maintained pulse ox and ventilation without any difficulty. IV antibiotics will be started as needed. Now she does not have any clinical sign of infection. Patient control has been monitored and recommendations considered. Repeat EKG does show clinical resolution the QTC prolongation. At this time the patient is otherwise clinical stable negative CT scan of the head and to repeat chest x-rays are stable. Will be monitored here in emergency department until admission process to the ICU is completed. The hospitalist Dr. Pleitez reviewed the case at length. No other recommendations or concerns are noted this time. 70 minutes of critical care applied the patient's treatment course at [facility] multidisciplinary intervention medical management and consultations. Patient is otherwise potentially critically ill secondary to her described overdose and multi-substances involved. Family is aware of this and then in the emergency department throughout the entire treatment course. Patient is otherwise clinically monitored here in the emergency department to the admission process is completed.
--- NOTE | 2018-12-20 20:04 | Internal Med History&Physical ---
<Angela Fink N - Last Filed: 12/20/18 22:26> Date of Encounter: 12/20/18 Time of Encounter: 21:02 Internal Medicine - H&P: HPI Chief complaint: Unresponsive/TCA overdose Admitted From: Emergency Dept History of present illness: Ms. Han is a 43 year old female with a history of schizophrenia and IVDU per chart review. She presented to the emergency department via EMS due to suspected drug overdose. EMS was called to her home, where they found her unresponsive. Family reportedly provided EMS with several empty medication bottles, with prescriptions of the lzolipidem 10mg, diazepam 5mg, and doxepin 25mg. Patient was administered narcan en route, with no improvement in responsiveness. Upon arrival to the emergency department, patient was noted to be tachycardic, with HR 116 bpm. Initial BP was 102/59; however, blood pressure began to decline, prompting insertion of right IJ CVC for pressor support. Patient was intubated for airway protection. EKG was obtained, which demonstrated prolonged QTC of 659. Poison Control Center was contacted, with recommendation for sodium bicarbonate bolus, as well as magnesium and calcium supplementation. Laboratory studies were also significant for pH 7.26 via VBG, potassium 3.2, chloride 110, and calcium 8.0. Urine toxicology was significant for presence of benzodiazepines and cocaine, as well as elevated ethyl alcohol level. Repeat EKG obtained in the emergency department did show improvement in QRS and QTC. Patient was transferred to the ICU for ongoing management. Past Med Surg Social Fam HX - Past Medical History Source: unable to obtain Medical history: no medical history Psychiatric history: schizophrenia - Past Surgical History Additional surgical history: eye sx - Social History Smoking Status: Current every day smoker Smokeless Tobacco Status: No Alcohol use: none Drug use: cocaine, IV Drug Use Internal Medicine - H&P: Meds Doxepin [Sinequan] 25 mg PO HS 12/20/18 [History] Zolpidem [Ambien] 10 mg PO HS PRN 12/20/18 [History] diazePAM [Valium] 5 mg PO DAILY PRN 12/20/18 [History] Allergy/AdvReac Type Severity Reaction Status Date / Time No Known Allergies Allergy Verified 06/07/16 16:08 ROS unobtainable: due to mental status All Systems PM: A 10-system review of systems was performed and is negative for pertinent findings except as documented above in the HPI. - Constitutional Vitals: Temp Pulse Resp BP Pulse Ox 97.2 F L 110 17 126/79 100 12/20/18 15:39 12/20/18 17:35 12/20/18 17:35 12/20/18 17:35 12/20/18 17:35 Exam: GENERAL: Well-developed, well-nourished obese adult female currently unresponsive and sedated on the ventilator. HEENT: Atraumatic and normocephalic. CARDIOVASCULAR: Regular rate and rhythm. S1 and S2 present. No murmurs, gallops, or rubs. RESPIRATORY: Clear to auscultation bilaterally. Chest rises and falls symmetrically. GASTROINTESTINAL: Abdomen is soft, nontender, nondistended. Bowel sounds present 4 quadrants. EXTREMITIES: No clubbing, cyanosis, or edema. SKIN: Warm, dry, and intact. NEUROLOGIC: Currently unresponsive and sedated. PSYCHIATRIC: Unable to assess secondary to unresponsiveness/sedation. Internal Med - H&P Results - Labs CBC & Chem 7: 12/20/18 16:01 12/20/18 21:23 Labs: Short CBC 12/20/18 Range/Units 16:01 WBC 6.0 (4.3-11.1) K/mcL Hgb 11.4 L (11.5-15.4) g/dL Hct 35.0 L (35.3-44.9) % Plt Count 215 (140-400) K/mcL Neutrophils # 3.8 (1.6-8.9) K/mcL BMP 12/20/18 16:01 Sodium 143 Potassium 3.2 L Chloride 110 H Carbon Dioxide 23 BUN 9 Creatinine 0.58 L Glucose 127 H Calcium 8.0 L Liver Function 12/20/18 Range/Units 16:01 Total Bilirubin 0.2 L (0.3-1.0) mg/dL Direct Bilirubin 0.0 (0.0-0.2) mg/dL AST 11 L (13-39) Units/L ALT 13 (7-52) Units/L Alkaline Phosphatase 55 (34-104) Units/L Albumin 3.5 (3.5-5.7) g/dL Urine 12/20/18 Range/Units 16:38 Urine Color Yellow (Yellow) Urine Clarity Clear (Clear) Urine pH 6.0 (5.0-8.0) pH Units Ur Specific [place] 1.010 (1.010-1.025) Urine Protein Negative (Neg-Trace) mg/dL Urine Glucose (UA) Normal (Normal) mg/dL - ABG Interpretation ABG results: 12/20/18 12/20/18 16:24 18:29 ABG pH 7.34 ABG pCO2 46 H ABG pO2 80 L ABG HCO3 25 ABG Total CO2 26 ABG O2 Saturation 95 ABG Base Excess -1 VBG pH 7.26 L VBG pCO2 52 H VBG pO2 213 H VBG HCO3 23 - Impressions ITS Impressions Chest X-Ray 12/20/18 15:35 IMPRESSION: No acute cardiopulmonary disease. Central line tip at the cavoatrial junction with no pneumothorax. D/ / Lito Aguilera MD / Lito Aguilera MD Interpreting Provider: Lito Aguilera MD Head CT 12/20/18 15:35 IMPRESSION: No acute intracranial abnormality. D/ / Maik Gonzalez MD / Maik Gonzalez MD Interpreting Provider: Maik Gonzalez MD Chest X-Ray 12/20/18 17:30 IMPRESSION: 1. Endotracheal tube tip within the right mainstem bronchus. Recommend retraction of at least 5 cm. 2. Mild interstitial prominence. Critical results were called by Dr. Darcy Cornelius MD to Sourav Mark DO on 12/20/2018 at 17:47. D/ / Darcy Cornelius MD / Darcy Cornelius MD Interpreting Provider: Darcy Cornelius MD - Assessment and Plan (1) Suicide attempt by drug overdose Current Visit: Yes Status: Acute Assessment and plan: Suspect polypharmacy intoxication with unknown quantities of zolipidem, diazepam, and doxepin. Urine toxicology was significant for presence of benzodiazepines and cocaine, as well as elevated ethanol level. Patient did have EKG abnormalities consistent with TCA overdose, with prolonged QRS >500. Patient did receive sodium bicarbonate bolus 2 and electrolyte replacement in the ED; repeat EKG was improved, with QRS 112 and QTc 486. Patient was initially hypotensive, prompting placement of right IJ CVC and initiation of levophed for pressure support. At the time of arrival to the ICU, patient was no longer requiring pressor support. Repeat EKG was obtained, which showed QRS 99 and QTc 439. ABG was obtained, which demonstrated pH 7.39, PCO2 48, PO2 89, and HCO3 29. Case was discussed with Poison Control Center, who provided their algorithm for management of TCA overdose. As patient has QRS <100 and pH >7.35, bicarbonate gtt can be discontinued, and patient can be managed per "hemodynamically stable" pathway, with repeat EKG and ABG Q3H. However, as patient's pH is not within designated goal range of 7.45-7.55, we will continue bicarbonate gtt until goal pH is obtained. Plan: - Repeat ABG Q1H until pH is at goal between 7.45-7.55. Once goal is reached, will titrate down by 25% hourly until stopped. - Repeat EKG Q2H. Plan for bolus of sodium bicarbonate x2 if QRS >100. - Repeat serum electrolytes Q2H. - Continue telemetry monitoring. - Recommend psychiatry evaluation and recommendation prior to hospital discharge. (2) Intentional poisoning by tricyclic antidepressant Current Visit: Yes Status: Acute Assessment and plan: Plan as above. (3) Intentional benzodiazepine overdose Current Visit: Yes Status: Acute Assessment and plan: - Continue supportive care. Qualifiers: Encounter type: initial encounter Qualified Code(s): T42.4X2A - Poisoning by benzodiazepines, intentional self-harm, initial encounter (4) Hypotension Current Visit: Yes Status: Acute Assessment and plan: Secondary to polypharmacy overdose. Patient is not currently requiring pressor support. Plan as above. Qualifiers: Hypotension type: hypotension due to drug Qualified Code(s): I95.2 - Hypotension due to drugs (5) DVT prophylaxis Current Visit: Yes Status: Acute Assessment and plan: - Heparin 5000units SQ Q8H. - Time Spent With Patient Total time spent is greater than 50% in coordination of care (as documented) at patient's floor/unit and/or counseling patient: <Shilpa Perez - Last Filed: 12/21/18 02:41> Date of Encounter: 12/21/18 Internal Medicine - H&P: HPI History of present illness: Ms. Han is a 43 year old female All Systems PM: A 10-system review of systems was performed and is negative for pertinent findings except as documented above in the HPI. - Constitutional Vitals: Temp Pulse Resp BP Pulse Ox 96.4 F L 88 18 138/88 100 12/20/18 20:30 12/21/18 01:00 12/21/18 01:19 12/21/18 01:19 12/21/18 01:19 Internal Med - H&P Results - Labs CBC & Chem 7: 12/20/18 16:01 12/21/18 01:40 Labs: Short CBC 12/20/18 Range/Units 16:01 WBC 6.0 (4.3-11.1) K/mcL Hgb 11.4 L (11.5-15.4) g/dL Hct 35.0 L (35.3-44.9) % Plt Count 215 (140-400) K/mcL Neutrophils # 3.8 (1.6-8.9) K/mcL BMP 12/20/18 12/20/18 12/21/18 16:01 21:23 01:40 Sodium 143 141 142 Potassium 3.2 L 3.5 3.6 Chloride 110 H 108 H 108 H Carbon Dioxide 23 29 26 BUN 9 7 Creatinine 0.58 L 0.46 L Glucose 127 H 99 Calcium 8.0 L 7.4 L Liver Function 12/20/18 Range/Units 16:01 Total Bilirubin 0.2 L (0.3-1.0) mg/dL Direct Bilirubin 0.0 (0.0-0.2) mg/dL AST 11 L (13-39) Units/L ALT 13 (7-52) Units/L Alkaline Phosphatase 55 (34-104) Units/L Albumin 3.5 (3.5-5.7) g/dL Urine 12/20/18 Range/Units 16:38 Urine Color Yellow (Yellow) Urine Clarity Clear (Clear) Urine pH 6.0 (5.0-8.0) pH Units Ur Specific [place] 1.010 (1.010-1.025) Urine Protein Negative (Neg-Trace) mg/dL Urine Glucose (UA) Normal (Normal) mg/dL - ABG Interpretation ABG results: 12/20/18 12/20/18 12/20/18 16:24 18:29 20:51 ABG pH 7.34 7.39 ABG pCO2 46 H 48 H ABG pO2 80 L 89 ABG HCO3 25 29 H ABG Total CO2 26 31 H ABG O2 Saturation 95 97 ABG Base Excess -1 4 H VBG pH 7.26 L VBG pCO2 52 H VBG pO2 213 H VBG HCO3 23 12/20/18 12/20/18 12/21/18 22:29 23:36 00:36 ABG pH 7.41 7.35 7.53 H D ABG pCO2 47 H 54 H 32 L D ABG pO2 107 H 104 87 ABG HCO3 29 H 30 H 27 ABG Total CO2 31 H 32 H 28 H ABG O2 Saturation 98 98 98 ABG Base Excess 4 H 4 H 4 H VBG pH VBG pCO2 VBG pO2 VBG HCO3 12/21/18 01:25 ABG pH 7.51 H ABG pCO2 31 L ABG pO2 71 L ABG HCO3 25 ABG Total CO2 26 ABG O2 Saturation 96 ABG Base Excess 3 VBG pH VBG pCO2 VBG pO2 VBG HCO3 - Impressions ITS Impressions Chest X-Ray 12/20/18 15:35 IMPRESSION: No acute cardiopulmonary disease. Central line tip at the cavoatrial junction with no pneumothorax. D/ / Lito Aguilera MD / Lito Aguilera MD Interpreting Provider: Lito Aguilera MD Head CT 12/20/18 15:35 IMPRESSION: No acute intracranial abnormality. D/ / Maik Gonzalez MD / Maik Gonzalez MD Interpreting Provider: Maik Gonzalez MD Chest X-Ray 12/20/18 17:30 IMPRESSION: 1. Endotracheal tube tip within the right mainstem bronchus. Recommend retraction of at least 5 cm. 2. Mild interstitial prominence. Critical results were called by Dr. Darcy Cornelius MD to Sourav Mark DO on 12/20/2018 at 17:47. D/ / Darcy Cornelius MD / Darcy Cornelius MD Interpreting Provider: Darcy Cornelius MD X-Ray 12/20/18 21:10 IMPRESSION: Satisfactory position of enteric catheter with tip in the distal stomach. D/ / Lito Aguilera MD / Lito Aguilera MD Interpreting Provider: Lito Aguilera MD - Time Spent With Patient Total time spent is greater than 50% in coordination of care (as documented) at patient's floor/unit and/or counseling patient: - Attending Attestation I performed a history and physical examination the patient and discussed her management with the resident. I reviewed the resident's note and agree with the assessment and plan of care. In short patient is a 43-year-old female with a past medical history of schizophrenia and IV drug abuse brought in by EMS due to suspected drug overdose reportedly taking an unspecified amount of the zolpidem, diazepam and doxepin. Vitals initial presentation were stable. Patient did have EKG changes including increased QRS duration and a QTC of over 600. Poison control was contacted and patient was managed per protocol for try cyclic toxicity with sodium bicarbonate. Patient was also given calcium gluconate and magnesium. Patient became transiently hypotensive in the ED with a systolic into the 80s to 90s. Central line was placed and patient was started on vasopressors with levo fed. Blood pressure improved and was subsequently transferred to the ICU. At this time we will continue bicarbonate drip and ho urly ABGs with pH goal 7.45-7.55. We will monitor electrolytes and correct as needed. We will continue levo fed and titrate as needed to maintain normal BP. Continue vent management. Appreciate pulmonary critical care input.
[2018-12-20 20:55] LABS: ABG Base Excess 4 mEq/L (-2 to 3); ABG HCO3 29 mEq/L (21-27); ABG Oxygen Saturation 97 % (95-98); ABG PCO2 48 mmHg (35-45); ABG PH 7.39 pH Units (7.32-7.45); ABG PO2 89 mmHg (85-104); ABG TCO2 31 mEq/L (20-26); Blood Gas Modality ASSIST CONTROL; Blood Gas PEEP 5 cm H2O; Blood Gas Respiration Rate 12; Blood Gas VT 500 cc
[2018-12-20 21:58] LABS: VBG Ionized Calcium 1.06 mmol/L (1.15-1.35)
[2018-12-20 22:16] LABS: BUN/Creatinine Ratio 15 (6-26); Blood Urea Nitrogen 7 mg/dL (6-20); Calcium 7.4 mg/dL (8.6-10.3); Carbon Dioxide 29 mEq/L (23-29); Chloride 108 mEq/L (98-107); Glucose 99 mg/dL (70-105); Magnesium 2.1 mg/dL (1.6-2.6); Osmolality,Calculated 290 (280-300); Phosphorous 2.5 mg/dL (2.7-4.5); Potassium 3.5 mEq/L (3.5-5.1); Sodium 141 mEq/L (136-145); eGFR For Non-African Americans > 60 (> 60)
[2018-12-20] MEDS ORDERED: Potassium Phosphate 44 MEQ in 0.9 % Sodium Chloride 250 ML IVPB ONE (22:25)
[2018-12-20] MEDS ORDERED: Calcium Gluconate 2,000 MG in 0.9 % Sodium Chloride 100 ML IVPB ONE (22:25)
[2018-12-20 22:32] LABS: ABG Base Excess 4 mEq/L (-2 to 3); ABG HCO3 29 mEq/L (21-27); ABG Oxygen Saturation 98 % (95-98); ABG PCO2 47 mmHg (35-45); ABG PH 7.41 pH Units (7.32-7.45); ABG PO2 107 mmHg (85-104); ABG TCO2 31 mEq/L (20-26); Blood Gas Modality PRVC; Blood Gas PEEP 5 cm H2O; Blood Gas Respiration Rate 12; Blood Gas VT 500 cc
[2018-12-20] MEDS: *HR* Heparin 5,000 UNIT/ML VIAL SQ SCH (22:35)
[2018-12-20] MEDS ORDERED: Artificial Tears SOLN 15 ML BOTTLE BOTH EYES PRN (22:44)
[2018-12-20] MEDS ORDERED: Naloxone 0.4 MG/ML INJ IVP PRN (23:14)
[2018-12-20 23:41] LABS: ABG Base Excess 4 mEq/L (-2 to 3); ABG HCO3 30 mEq/L (21-27); ABG Oxygen Saturation 98 % (95-98); ABG PCO2 54 mmHg (35-45); ABG PH 7.35 pH Units (7.32-7.45); ABG PO2 104 mmHg (85-104); ABG TCO2 32 mEq/L (20-26); Blood Gas Modality PRVC; Blood Gas PEEP 5 cm H2O; Blood Gas Respiration Rate 10; Blood Gas VT 450 cc
[2018-12-21 00:40] LABS: ABG Base Excess 4 mEq/L (-2 to 3); ABG HCO3 27 mEq/L (21-27); ABG Oxygen Saturation 98 % (95-98); ABG PCO2 32 mmHg (35-45); ABG PH 7.53 pH Units (7.32-7.45); ABG PO2 87 mmHg (85-104); ABG TCO2 28 mEq/L (20-26); Blood Gas Modality ASSIST CONTROL; Blood Gas PEEP 5 cm H2O; Blood Gas Respiration Rate 18; Blood Gas VT 500 cc
[2018-12-21] MEDS: Artificial Tears SOLN 15 ML BOTTLE BOTH EYES SCH ×7 (01:10→23:09)
[2018-12-21 01:28] LABS: ABG Base Excess 3 mEq/L (-2 to 3); ABG HCO3 25 mEq/L (21-27); ABG Oxygen Saturation 96 % (95-98); ABG PCO2 31 mmHg (35-45); ABG PH 7.51 pH Units (7.32-7.45); ABG PO2 71 mmHg (85-104); ABG TCO2 26 mEq/L (20-26); Blood Gas Modality ASSIST CONTROL; Blood Gas PEEP 5 cm H2O; Blood Gas Respiration Rate 18; Blood Gas VT 500 cc
[2018-12-21] MEDS ORDERED: Sodium Bicarbonate 150 MEQ in 0.45 % Sodium Chloride 1,000 ML IVC SCH ×3 (01:29→03:30)
[2018-12-21 02:13] LABS: Potassium 3.6 mEq/L (3.5-5.1)
[2018-12-21 04:32] LABS: ABG Base Excess 3 mEq/L (-2 to 3); ABG HCO3 25 mEq/L (21-27); ABG Oxygen Saturation 96 % (95-98); ABG PCO2 30 mmHg (35-45); ABG PH 7.54 pH Units (7.32-7.45); ABG PO2 69 mmHg (85-104); ABG TCO2 26 mEq/L (20-26); Blood Gas Modality ASSIST CONTROL; Blood Gas PEEP 5 cm H2O; Blood Gas Respiration Rate 18; Blood Gas VT 500 cc
[2018-12-21] MEDS: Ringers Solution, Lactated 1,000 ML IVC SCH ×3 (04:45→20:07)
[2018-12-21 04:53] LABS: Basophils % 0.1 %; Eosinophils # 0.1 K/mcL (0.0-0.6); Eosinophils % 1.4 %; Hematocrit 33.5 % (35.3-44.9); Hemoglobin 11.2 g/dL (11.5-15.4); Immature Granulocytes % 0.4 % (0-4); Lymphocytes # 2.1 K/mcL (0.6-4.6); Lymphocytes % 29.8 %; Mean Corpuscular HGB Conc 33.4 g/dL (31.6-35.5); Mean Corpuscular Hemoglobin 28.8 pg (28.0-33.3); Mean Corpuscular Volume 86.1 fL (83.0-100.0); Monocytes # 0.3 K/mcL (0.0-1.3); Monocytes % 4.6 %; Neutrophils # 4.4 K/mcL (1.6-8.9); Platelet Count 206 K/mcL (140-400); Red Blood Count 3.89 M/mcL (3.82-4.97); Red Cell Distribution Width 13.8 % (11.5-14.5); Segmented Neutrophils % 63.7 %
[2018-12-21 04:58] LABS: VBG Ionized Calcium 1.12 mmol/L (1.15-1.35)
[2018-12-21 05:10] LABS: BUN/Creatinine Ratio 13 (6-26); Blood Urea Nitrogen 7 mg/dL (6-20); Calcium 8.4 mg/dL (8.6-10.3); Carbon Dioxide 26 mEq/L (23-29); Chloride 106 mEq/L (98-107); Glucose 107 mg/dL (70-105); Osmolality,Calculated 292 (280-300); Phosphorous 3.2 mg/dL (2.7-4.5); Potassium 3.4 mEq/L (3.5-5.1); Sodium 142 mEq/L (136-145); eGFR For Non-African Americans > 60 (> 60)
[2018-12-21] MEDS ORDERED: Potassium Phosphate 44 MEQ in 0.9 % Sodium Chloride 250 ML IVPB PRN (05:16)
[2018-12-21] MEDS: *HR* Heparin 5,000 UNIT/ML VIAL SQ SCH ×3 (05:39→22:09)
[2018-12-21] MEDS: Pantoprazole 40 MG VIAL IVP SCH (05:39)
[2018-12-21] MEDS: Chlorhexidine Rinse 15 ML MOUTHWASH MM SCH ×2 (08:49→20:07)
--- NOTE | 2018-12-21 09:37 | Pulmonology Consult Note ---
<Cecil Mehta - Last Filed: 12/21/18 12:14> Date of Encounter: 12/21/18 Time of Encounter: 12:18 Assessment and Plan (1) Respiratory failure Current Visit: Yes Status: Acute n arrival, due to patient declined, patient was intubated in the ED Patient was started on sedatives as well as pressure support following central line placement in the ER. On arrival to the ICU, pressors were was no longer needed, however she remained intubated with sedation in place. Chest x-ray shows no sign of opacification or infection, no pneumothorax Suspect respiratory drive decreased secondary to overdose of medications. Urine tox screen shows positive for cocaine as well as benzos. Patient on arrival also had QTC prolongation most likely secondary to TCA overdose. At this point in time EKG has normalized, ABG shows pH of 7.54. Plan At this point in time, will plan to extubate the patient with trial of CPAP to BiPAP as tolerated. There was a trial earlier this morning, patient became apneic and extubation plans were delayed. We will continue trial (2) Intentional poisoning by tricyclic antidepressant Current Visit: Yes Status: Acute Suspect polypharmacy intoxication with unknown quantities of zolipidem, diazepam, and doxepin. Urine toxicology was significant for presence of benzodiazepines and cocaine, as well as elevated ethanol level. Patient did have EKG abnormalities consistent with TCA overdose, with prolonged QRS >500. Patient did receive sodium bica rbonate bolus 2 and electrolyte replacement in the ED; repeat EKG was improved, with QRS 112 and QTc 486. Patient was initially hypotensive, prompting placement of right IJ CVC and initiation of levophed for pressure support. At the time of arrival to the ICU, patient was no longer requiring pressor support. Repeat EKG was obtained, which showed QRS 99 and QTc 439. ABG was obtained, which demonstrated pH 7.39, PCO2 48, PO2 89, and HCO3 29. Case was discussed with Poison Control Center, who provided their algorithm for management of TCA overdose. As patient has QRS <100 and pH >7.35, bicarbonate gtt can be discontinued, and patient can be managed per "hemodynamically stable" pathway, with repeat EKG and ABG Q3H. However, as patient's pH is not within designated goal range of 7.45-7.55, we will continue bicarbonate gtt until goal pH is obtained. Plan: - Repeat ABG Q1H until pH is at goal between 7.45-7.55. Once goal is reached, will titrate down by 25% hourly until stopped. - Repeat EKG Q2H. Plan for bolus of sodium bicarbonate x2 if QRS >100. - Patient's ABG shows patient to be alkalotic with a pH of 7.54 this point in time sodium bicarbonate will be stopped, we will continue to monitor. Patient is remained intubated. Plan was to extubate today however during trial of CPAP, patient became apneic and was not extubated. We will continue to trial. - Repeat EKG today shows normalization of the QRS and QTc with QRS duration of 82 and QTc of 425. - Continue telemetry monitoring. - Recommend psychiatry evaluation once patient is extubated (3) Intentional benzodiazepine overdose Current Visit: Yes Status: Acute Continue supportive care and plan as above Qualifiers: Encounter type: initial encounter Qualified Code(s): T42.4X2A - Poisoning by benzodiazepines, intentional self-harm, initial encounter (4) Suicidal ideation Current Visit: Yes Status: Acute Per family, patient left a suicide note following the intentional ingestion of home medications Plan Once patient is extubated, patient will have a psychiatric consult as well as a sitter with suicide precaution started As the patient is currently intubated and sedated with pressor support, we will hold off on consult at this time (5) DVT prophylaxis Current Visit: Yes Status: Acute We will continue with heparin History of Present Illness Consult date: 12/21/18 Requesting physician: Shilpa Perez Chief complaint: AMS History of present illness: Patient is a 43-year-old female with history of schizophrenia IV drug use per family. History was obtained from as well as daughter as patient is currently intubated and sedated. Patient presented to the emergency department via EMS due to suspected drug overdose. Per , while at home, patient began to have slurred speech and altered mental status, he then went to her bedroom and found a suicide note as well as empty medication bottles. This included diazepam, doxepin and zolpidem. On EMSs arrival patient was given Narcan with no improvement. Upon arrival to the ER, patient was tachycardic with a heart rate of 116. Blood pressure was 102/59. Blood pressure began to decline and a central venous catheter was placed as well as intubation. EKG was obtained which demonstrate a prolonged QTC of 659. Post control was contacted which recommended a sodium bicarbonate bolus with magnesium the [facility] calcium supplementation. VBG revealed a pH of 7.26, potassium 3.2, chloride of 110 and calcium of 8. Urine toxicology was positive for cocaine and benzodiazepine as well as elevated ethyl alcohol. Repeat EKG following the bolus did show some improvement and QRS and QTc and was transferred to ICU for ongoing management. Overnight, patient remained intubated for sedation with necessary pressor support. EKG continued to be performed which has showed by this morning QRS and QTc normalization. Per poison control recommendations, pH is now alkalotic, with a pH of 7.54. Today patient's as well as daughter at her bedside, patient remained sedated and intubated and is able to provide further history. Per her family, she denies history of suicidal ideation or intent for the past few years. Family does not believe this was an intentional overdose of medications, as there was a suicide note left at the patient's bathroom. Past Med Surg Social Fam HX - Past Medical History Medical history: no medical history Psychiatric history: schizophrenia - Past Surgical History Additional surgical history: eye sx - Social History Smoking Status: Current every day smoker Smokeless Tobacco Status: No Alcohol use: none Drug use: cocaine, IV Drug Use Medications and Allergies Doxepin [Sinequan] 25 mg PO HS 12/20/18 [History] Zolpidem [Ambien] 10 mg PO HS PRN 12/20/18 [History] diazePAM [Valium] 5 mg PO DAILY PRN 12/20/18 [History] Allergy/AdvReac Type Severity Reaction Status Date / Time No Known Allergies Allergy Verified 06/07/16 16:08 ROS unobtainable: due to endotracheal tube, due to mental status All Systems: The remainder of the systems were reviewed and are negative Physical Examination Vital Signs: Vital Signs, Last 4 Hours Temp Pulse Resp BP Pulse Ox 12/21/18 09:25 18 97 12/21/18 09:00 97.8 F 95 18 134/73 95 12/21/18 08:00 93 18 136/79 96 12/21/18 07:29 18 99 12/21/18 07:15 98.0 F 12/21/18 07:00 95 18 125/73 99 12/21/18 06:00 91 18 135/79 99 General appearance: no acute distress Eyes: nonicteric ENT: oropharynx dry Neck: supple Effort: normal Auscultation: bilateral: clear Cardiovascular: regular rate and rhythm Gastrointestinal: normoactive bowel sounds, non-tender, non-distended Integumentary: normal Extremities: no cyanosis, no edema, pink and warm, pulses normal, no ischemia or petechiae unable to assess due to mental status Ventilator Settings Ventilator Settings: Ventilator Settings, Last 8 Hours Ventilator Tidal Volume 500 Setting Ventilator Tidal Volume 500 Setting Ventilator Tidal Volume 500 Setting Ventilator Tidal Volume 500 Setting Ventilator Tidal Volume 500 Setting Ventilator Tidal Volume 500 Setting Ventilator Tidal Volume 500 Setting Ventilator Tidal Volume 500 Setting Ventilator Tidal Volume 500 Setting Ventilator Tidal Volume 500 Setting Ventilator Tidal Volume 500 Setting Ventilator Tidal Volume 500 Setting Ventilator Tidal Volume 500 Setting Ventilator Respiratory Rate 18 Setting Ventilator Respiratory Rate 18 Setting Ventilator Respiratory Rate 18 Setting Ventilator Respiratory Rate 18 Setting Ventilator Respiratory Rate 18 Setting Ventilator Respiratory Rate 18 Setting Ventilator Respiratory Rate 18 Setting Ventilator Respiratory Rate 18 Setting Ventilator Respiratory Rate 18 Setting Ventilator Respiratory Rate 18 Setting Ventilator Respiratory Rate 18 Setting Ventilator Respiratory Rate 18 Setting Ventilator Respiratory Rate 18 Setting Actual Respiratory Rate 18 Actual Respiratory Rate 18 Actual Respiratory Rate 18 Actual Respiratory Rate 18 Actual Respiratory Rate 18 Actual Respiratory Rate 18 Actual Respiratory Rate 18 Actual Respiratory Rate 18 Actual Respiratory Rate 18 Actual Respiratory Rate 18 Actual Respiratory Rate 18 Actual Respiratory Rate 18 Positive End Expiratory 5 Pressure Positive End Expiratory 5 Pressure Positive End Expiratory 5 Pressure Positive End Expiratory 5 Pressure Positive End Expiratory 5 Pressure Positive End Expiratory 5 Pressure Positive End Expiratory 5 Pressure Positive End Expiratory 5 Pressure Positive End Expiratory 5 Pressure Positive End Expiratory 5 Pressure Positive End Expiratory 5 Pressure Positive End Expiratory 5 Pressure Positive End Expiratory 5 Pressure Peak Inspiratory Airway 34 Pressure Peak Inspiratory Airway 36 Pressure Peak Inspiratory Airway 35 Pressure Peak Inspiratory Airway 30 Pressure Peak Inspiratory Airway 30 Pressure Peak Inspiratory Airway 31 Pressure Peak Inspiratory Airway 35 Pressure Peak Inspiratory Airway 33 Pressure Peak Inspiratory Airway 34 Pressure Peak Inspiratory Airway 34 Pressure Peak Inspiratory Airway 36 Pressure Peak Inspiratory Airway 36 Pressure Results - Laboratory Findings CBC and BMP: 12/21/18 04:30 12/21/18 10:30 ABG ABG pH 7.54 pH Units (7.32-7.45) H 12/21/18 04:30 ABG pCO2 30 mmHg (35-45) L 12/21/18 04:30 ABG pO2 69 mmHg (85-104) L 12/21/18 04:30 ABG O2 Saturation 96 % (95-98) 12/21/18 04:30 PT/INR, D-dimer PT 12.0 Seconds (9.4-12.1) 12/20/18 16:01 Abnormal lab findings: Abnormal lab results Hgb 11.2 g/dL (11.5-15.4) L 12/21/18 04:30 Hct 33.5 % (35.3-44.9) L 12/21/18 04:30 MPV 9.0 fL (9.4-12.4) L 12/21/18 04:30 ABG pH 7.54 pH Units (7.32-7.45) H 12/21/18 04:30 ABG pCO2 30 mmHg (35-45) L 12/21/18 04:30 ABG pO2 69 mmHg (85-104) L 12/21/18 04:30 ABG HCO3 30 mEq/L (21-27) H 12/20/18 23:36 ABG Total CO2 28 mEq/L (20-26) H 12/21/18 00:36 ABG Base Excess 4 mEq/L (-2 to 3) H 12/21/18 00:36 VBG pH 7.26 pH Units (7.32-7.42) L 12/20/18 16:24 VBG pCO2 52 mmHg (41-51) H 12/20/18 16:24 VBG pO2 213 mmHg (25-50) H 12/20/18 16:24 6.7 % (0-5) H 12/20/18 16:01 Potassium 3.4 mEq/L (3.5-5.1) L 12/21/18 04:30 Chloride 108 mEq/L (98-107) H 12/21/18 01:40 0.54 mg/dL (0.60-1.20) L 12/21/18 04:30 Glucose 107 mg/dL (70-105) H 12/21/18 04:30 POC Glucose 139 mg/dL (70-99) H 12/20/18 15:36 Calcium 8.4 mg/dL (8.6-10.3) L 12/21/18 04:30 Venous Ioniz Calcium 1.12 mmol/L (1.15-1.35) L 12/21/18 04:55 Phosphorus 2.5 mg/dL (2.7-4.5) L 12/20/18 21:23 0.2 mg/dL (0.3-1.0) L 12/20/18 16:01 AST 11 Units/L (13-39) L 12/20/18 16:01 5.5 g/dL (6.4-8.9) L 12/20/18 16:01 2.0 g/dL (2.4-3.5) L 12/20/18 16:01 Salicylates < 2.5 mg/dL (15.0-30.0) L 12/20/18 16:01 Acetaminophen < 10 mcg/mL (10-20) L 12/20/18 16:01 U Benzodiazepines Scrn Positive ng/mL (Mmxwpq=545) H 12/20/18 16:30 Positive ng/mL (Cutoff= 300) H 12/20/18 16:30 Ethyl Alcohol 56 mg/dL (Less than 10) H 12/20/18 16:01 - Diagnostic Findings Chest x-ray: report reviewed, image reviewed - Clinical Findings Intake & Output: Intake & Output 12/20/18 12/21/18 12/21/18 23:59 07:59 15:59 Intake Total 1375 / 1375 1082 / 1082 Output Total 750 / 750 550 / 550 Balance 625 / 625 532 / 532 Weight 103.6 kg Consult Discharge Plan - Plan Referrals: NONE,PCP [Primary Care Provider] - <Dimitrios West W - Last Filed: 12/21/18 13:48> Date of Encounter: 12/21/18 All Systems: The remainder of the systems were reviewed and are negative Physical Examination Vital Signs: Vital Signs, Last 4 Hours Temp Pulse Resp BP Pulse Ox 12/21/18 12:23 98.4 F 12/21/18 11:57 18 95 12/21/18 11:00 97.8 F 108 13 132/72 97 Ventilator Settings Ventilator Settings: Ventilator Settings, Last 8 Hours Ventilator Tidal Volume 500 Setting Ventilator Tidal Volume 500 Setting Ventilator Tidal Volume 500 Setting Ventilator Tidal Volume 500 Setting Ventilator Tidal Volume 500 Setting Ventilator Tidal Volume 500 Setting Ventilator Tidal Volume 500 Setting Ventilator Respiratory Rate 18 Setting Ventilator Respiratory Rate 18 Setting Ventilator Respiratory Rate 18 Setting Ventilator Respiratory Rate 18 Setting Ventilator Respiratory Rate 18 Setting Ventilator Respiratory Rate 18 Setting Ventilator Respiratory Rate 18 Setting Actual Respiratory Rate 18 Actual Respiratory Rate 18 Actual Respiratory Rate 18 Actual Respiratory Rate 18 Actual Respiratory Rate 18 Actual Respiratory Rate 18 Actual Respiratory Rate 18 Positive End Expiratory 5 Pressure Positive End Expiratory 5 Pressure Positive End Expiratory 5 Pressure Positive End Expiratory 5 Pressure Positive End Expiratory 5 Pressure Positive End Expiratory 5 Pressure Positive End Expiratory 5 Pressure Peak Inspiratory Airway 22 Pressure Peak Inspiratory Airway 34 Pressure Peak Inspiratory Airway 36 Pressure Peak Inspiratory Airway 35 Pressure Peak Inspiratory Airway 30 Pressure Peak Inspiratory Airway 30 Pressure Peak Inspiratory Airway 31 Pressure Results - Laboratory Findings CBC and BMP: 12/21/18 04:30 12/21/18 10:30 ABG ABG pH 7.54 pH Units (7.32-7.45) H 12/21/18 04:30 ABG pCO2 30 mmHg (35-45) L 12/21/18 04:30 ABG pO2 69 mmHg (85-104) L 12/21/18 04:30 ABG O2 Saturation 96 % (95-98) 12/21/18 04:30 PT/INR, D-dimer PT 12.0 Seconds (9.4-12.1) 12/20/18 16:01 Abnormal lab findings: Abnormal lab results Hgb 11.2 g/dL (11.5-15.4) L 12/21/18 04:30 Hct 33.5 % (35.3-44.9) L 12/21/18 04:30 MPV 9.0 fL (9.4-12.4) L 12/21/18 04:30 ABG pH 7.54 pH Units (7.32-7.45) H 12/21/18 04:30 ABG pCO2 30 mmHg (35-45) L 12/21/18 04:30 ABG pO2 69 mmHg (85-104) L 12/21/18 04:30 ABG HCO3 30 mEq/L (21-27) H 12/20/18 23:36 ABG Total CO2 28 mEq/L (20-26) H 12/21/18 00:36 ABG Base Excess 4 mEq/L (-2 to 3) H 12/21/18 00:36 VBG pH 7.26 pH Units (7.32-7.42) L 12/20/18 16:24 VBG pCO2 52 mmHg (41-51) H 12/20/18 16:24 VBG pO2 213 mmHg (25-50) H 12/20/18 16:24 6.7 % (0-5) H 12/20/18 16:01 Potassium 3.4 mEq/L (3.5-5.1) L 12/21/18 04:30 Chloride 108 mEq/L (98-107) H 12/21/18 01:40 0.54 mg/dL (0.60-1.20) L 12/21/18 04:30 Glucose 107 mg/dL (70-105) H 12/21/18 04:30 POC Glucose 139 mg/dL (70-99) H 12/20/18 15:36 Calcium 8.4 mg/dL (8.6-10.3) L 12/21/18 04:30 Venous Ioniz Calcium 1.12 mmol/L (1.15-1.35) L 12/21/18 04:55 Phosphorus 2.5 mg/dL (2.7-4.5) L 12/20/18 21:23 0.2 mg/dL (0.3-1.0) L 12/20/18 16:01 AST 11 Units/L (13-39) L 12/20/18 16:01 5.5 g/dL (6.4-8.9) L 12/20/18 16:01 2.0 g/dL (2.4-3.5) L 12/20/18 16:01 Salicylates < 2.5 mg/dL (15.0-30.0) L 12/20/18 16:01 Acetaminophen < 10 mcg/mL (10-20) L 12/20/18 16:01 U Benzodiazepines Scrn Positive ng/mL (Tfahfu=378) H 12/20/18 16:30 Positive ng/mL (Cutoff= 300) H 12/20/18 16:30 Ethyl Alcohol 56 mg/dL (Less than 10) H 12/20/18 16:01 - Clinical Findings Intake & Output: Intake & Output 12/20/18 12/21/18 12/21/18 23:59 07:59 15:59 Intake Total 1375 / 1375 1082 / 2082 1000 / 2082 Output Total 750 / 750 550 / 700 150 / 700 Balance 625 / 625 532 / 1382 850 / 1382 Weight 103.6 kg - Attending Attestation I examined this patient and my medical decision-making was reviewed with the Resident Physician. I agree with the documented findings, disposition and treatment plan as described except to the extent set forth below. We independently had [id number] contact with the patient I spent 35 min of Critical Care time with this patient. It involved decision making of high complexity to assess, manipulate, and support vital organ system failure and/or to prevent further life threatening deterioration of the patient's condition. The time involved in the performance of separately reportable procedures was not counted toward critical care time. Patient seen and examined at bedside Labs, radiology, chart personally reviewed. Management was reviewed during multidisciplinary critical care rounds. 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 he is status post an intentional overdose with polypharmacy and will need psychiatric evaluation when she is more awake/ extubated will continue suicide precautions; continue to monitor for ethanol withdrawal; start multivitamin and thiamine; benzo may need to be reinstituted to prevent withdrawal; poison control has been notified and appreciate the recommendations Pulm: Acute hypoxic hypercapnic respiratory failure she is on the vent and remains with acceptable gas change however CPAP trial was tried and she went apneic related to obtundation we will continue conservative measures/supportive care and likely can be liberated from the next 24 hours Cards: She has hypotension related to try cyclic overdose with multiple electrical abnormalities requiring continuous infusion of sodium bicarbonate ECG today is normalized and she is no longer hypotensive sodium bicarbonate will be stopped and we will continue to monitor on telemetry GI: GI prophylaxis given Nutrition: Nothing by mouth for now Renal: UOP Monitored, Cont to Trend sCr and monitor Electrolytes. ID: No evidence of infectious process continue to monitor Heme/Onc: DVT prophylaxis given Endo: Glucose Monitored Integ/MSK: Skin Care per routine ICU Nursing Protocol to prevent ulcers. Lines: All lines examined without evidence of infection : Dispo: Monitor in ICU for critical illness CODE: Full
[2018-12-21 10:47] LABS: VBG Ionized Calcium 1.15 mmol/L (1.15-1.35)
[2018-12-21] MEDS: Thiamine (B-1) 100 MG TABLET PO SCH (14:19)
[2018-12-21] MEDS: Multivitamin Liquid 15 ML UDC PO SCH (15:39)
[2018-12-21] MEDS: FentaNYL (PF) 1,000 MCG in 0.9 % Sodium Chloride 80 ML IVC SCH (18:30)
[2018-12-21] MEDS: Norepinephrine 4 MG in D5% in Water 250 ML IVC SCH (18:30)
[2018-12-21] MEDS ORDERED: *HR* Metoprolol 5 MG/5 ML VIAL IVP ONE ×2 (20:04→20:14)
[2018-12-21 22:27] LABS: VBG Ionized Calcium 1.16 mmol/L (1.15-1.35)
[2018-12-21 22:43] LABS: BUN/Creatinine Ratio 7 (6-26); Blood Urea Nitrogen 4 mg/dL (6-20); Calcium 8.1 mg/dL (8.6-10.3); Carbon Dioxide 25 mEq/L (23-29); Chloride 106 mEq/L (98-107); Glucose 130 mg/dL (70-105); Magnesium 1.9 mg/dL (1.6-2.6); Osmolality,Calculated 285 (280-300); Phosphorous 3.3 mg/dL (2.7-4.5); Potassium 3.8 mEq/L (3.5-5.1); Sodium 138 mEq/L (136-145); eGFR For Non-African Americans > 60 (> 60)
[2018-12-22] MEDS: Ringers Solution, Lactated 1,000 ML IVC SCH (03:44)
[2018-12-22] MEDS: Artificial Tears SOLN 15 ML BOTTLE BOTH EYES SCH ×2 (03:45→07:41)
[2018-12-22 04:39] LABS: Basophils % 0.3 %; Eosinophils # 0.1 K/mcL (0.0-0.6); Eosinophils % 1.3 %; Hematocrit 34.2 % (35.3-44.9); Hemoglobin 11.2 g/dL (11.5-15.4); Immature Granulocytes % 0.6 % (0-4); Lymphocytes # 1.7 K/mcL (0.6-4.6); Lymphocytes % 24.2 %; Mean Corpuscular HGB Conc 32.7 g/dL (31.6-35.5); Mean Corpuscular Hemoglobin 28.6 pg (28.0-33.3); Mean Corpuscular Volume 87.2 fL (83.0-100.0); Mean Platelet Volume 9.3 fL (9.4-12.4); Monocytes # 0.4 K/mcL (0.0-1.3); Monocytes % 5.6 %; Neutrophils # 4.8 K/mcL (1.6-8.9); Platelet Count 203 K/mcL (140-400); Red Blood Count 3.92 M/mcL (3.82-4.97); Red Cell Distribution Width 13.5 % (11.5-14.5)
[2018-12-22 04:41] LABS: VBG Ionized Calcium 1.15 mmol/L (1.15-1.35)
[2018-12-22 04:58] LABS: BUN/Creatinine Ratio 8 (6-26); Blood Urea Nitrogen 4 mg/dL (6-20); Calcium 8.2 mg/dL (8.6-10.3); Carbon Dioxide 25 mEq/L (23-29); Chloride 109 mEq/L (98-107); Glucose 111 mg/dL (70-105); Osmolality,Calculated 290 (280-300); Phosphorous 3.8 mg/dL (2.7-4.5); Potassium 3.8 mEq/L (3.5-5.1); Sodium 141 mEq/L (136-145); eGFR For Non-African Americans > 60 (> 60)
[2018-12-22 05:03] LABS: ABG Base Excess 3 mEq/L (-2 to 3); ABG HCO3 26 mEq/L (21-27); ABG Oxygen Saturation 94 % (95-98); ABG PCO2 36 mmHg (35-45); ABG PH 7.47 pH Units (7.32-7.45); ABG PO2 67 mmHg (85-104); ABG TCO2 27 mEq/L (20-26); Blood Gas Modality AF; Blood Gas PEEP 5 cm H2O; Blood Gas Respiration Rate 12; Blood Gas VT 500 cc
[2018-12-22] MEDS: *HR* Heparin 5,000 UNIT/ML VIAL SQ SCH ×3 (05:19→23:08)
[2018-12-22] MEDS: Pantoprazole 40 MG VIAL IVP SCH (05:19)
[2018-12-22] MEDS: Chlorhexidine Rinse 15 ML MOUTHWASH MM SCH (07:40)
[2018-12-22] MEDS: Thiamine (B-1) 100 MG TABLET PO SCH (07:40)
[2018-12-22] MEDS: Multivitamin Liquid 15 ML UDC PO SCH (07:40)
[2018-12-22] MEDS ORDERED: Furosemide 40 MG/4 ML VIAL IVP ONE (07:57)
--- NOTE | 2018-12-22 10:03 | Electrocardiograph Report ---
[address] [place], [place] [address] Test Date: 2018-12-20 Pat Name: Cherelle Han Department: [id number] Room: [facility] Gender: F Pharmacy Care Coordinator: : 1975 Requested By: Sourav Mark Order Number: [id number] Reading MD: Levy Lui Measurements Intervals [place] Rate: 114 P: DE: QRS: 62 QRSD: 128 T: 53 QT: 478 QTc: 659 Interpretive Statements Junctional tachycardia Nonspecific intraventricular conduction delay Electronically Signed On 12-22-2018 10:01:46 EDT by Levy Lui
--- NOTE | 2018-12-22 10:05 | Electrocardiograph Report ---
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
--- NOTE | 2018-12-22 10:07 | Electrocardiograph Report ---
[address] [address] Test Date: 2018-12-20 Pat Name: Cherelle Han Department: 109 Room: [facility] Gender: F Seam Checker: [id number] : 1975 Requested By: Angela Fink Order Number: [id number] Reading MD: Levy Lui Measurements Intervals [place] Rate: 92 P: 60 KS: 188 QRS: 26 QRSD: 99 T: 41 QT: 389 QTc: 439 Interpretive Statements SINUS RHYTHM Electronically Signed On 12-22-2018 10:06:00 EDT by Levy Lui
--- NOTE | 2018-12-22 10:09 | Electrocardiograph Report ---
[address] [place], [place] [address] Test Date: 2018-12-21 Pat Name: Cherelle Han Department: 109 Room: [facility] Gender: F Manager Integration: [id number] : 1975 Requested By: Angela Fink Order Number: [id number] Reading MD: Levy Lui Measurements Intervals [place] Rate: 86 P: 63 NE: 164 QRS: 37 QRSD: 81 T: 48 QT: 380 QTc: 423 Interpretive Statements SINUS RHYTHM Electronically Signed On 12-22-2018 10:07:47 EDT by Levy Lui
--- NOTE | 2018-12-22 11:21 | Pulmonology Progress Note ---
<Danielle Torres - Last Filed: 12/22/18 17:54> Date of Encounter: 12/22/18 Time of Encounter: 08:30 Assessment and Plan (1) Respiratory failure Current Visit: Yes Status: Acute Presented to the ED on 12/21/18 subsequently intubated due to respiratory declined after overdosing on medications In the ED her respiratory drive decreased Her urine toxicology screen was positive for cocaine as well as benzo and alcohol On arrival her QTC was prolonged Today her respiratory status had significantly improved she was awake alert with good tidal volumes She was extubated and has tolerated it well currently on 2 L of nasal cannula with oxygen saturation 90% Qualifiers: Chronicity: acute Respiratory failure complication: hypoxia Qualified Code(s): J96.01 - Acute respiratory failure with hypoxia (2) Intentional benzodiazepine overdose Current Visit: Yes Status: Acute Was found at home with vitals of zolpidem, diazepam, doxepin on Poison control was called at admission and they suggested measuring the patient hemodynamically Due to TCA overdose her QRS was greater than 500, she received sodium bicarbonate twice yesterday Her repeat EKG showed improvement and QTC Has a sitter in place Psychiatry has been consulted Psychiatry recommends currently not using any opiate receptor pain medications or anxiolytics Qualifiers: Encounter type: initial encounter Qualified Code(s): T42.4X2A - Poisoning by benzodiazepines, intentional self-harm, initial encounter (3) Intentional poisoning by tricyclic antidepressant Current Visit: Yes Status: Acute Same plan as above Continue to monitor on telemetry At presentation EKG showed prolonged QTC above 500 received IV sodium bicarbonate QTC significantly improved If arrhythmia develops consider rechecking EKG (4) Suicidal ideation Current Visit: Yes Status: Acute Per family patient had a suicide note found after she had ingested home me dications Currently extubated and has a sitter in place she is consulted waiting further recommendations Psychiatry recommended not starting any mental health medication at this time given her recent overdose After medically clear she can be transferred to inpatient psychiatry (5) DVT prophylaxis Current Visit: Yes Status: Acute Subcutaneous heparin Subjective Interval history: Ms. Han was seen at bedside this morning. She was intubated was awake and alert communicating via marker board. She did not complain of anything except finger which appeared to have a small blister. She also wrote on the board she did not want any visitors except her . She was later extubated tolerating 2 L nasal cannula with oxygen saturation 98%. Objective PUL Vital signs: Last Vital Signs Temp 98.9 F 12/22/18 10:55 Pulse 105 12/22/18 11:00 Resp 22 12/22/18 11:00 BP 130/109 12/22/18 11:00 Pulse Ox 97 12/22/18 11:00 General appearance: no acute distress, alert Eyes: nonicteric ENT: oropharynx moist Neck: supple, no lymphadenopathy Effort: normal Auscultation: bilateral: diminished breath sounds Cardiovascular: regular rate and rhythm Gastrointestinal: normoactive bowel sounds, soft, non-tender, non-distended Integumentary: normal Extremities: no cyanosis, no edema, pulses normal Musculoskeletal: no deformities non-focal exam, pupils equal and round Ventilator Settings Ventilator Settings: Ventilator Settings, Last 8 Hours Ventilator Tidal Volume 500 Setting Ventilator Tidal Volume 500 Setting Ventilator Tidal Volume 500 Setting Ventilator Tidal Volume 500 Setting Ventilator Tidal Volume 500 Setting Ventilator Tidal Volume 500 Setting Ventilator Respiratory Rate 12 Setting Ventilator Respiratory Rate 12 Setting Ventilator Respiratory Rate 12 Setting Ventilator Respiratory Rate 12 Setting Ventilator Respiratory Rate 12 Setting Ventilator Respiratory Rate 12 Setting Actual Respiratory Rate 22 Actual Respiratory Rate 21 Actual Respiratory Rate 19 Actual Respiratory Rate 20 Actual Respiratory Rate 13 Actual Respiratory Rate 12 Actual Respiratory Rate 12 Actual Respiratory Rate 12 Positive End Expiratory 5 Pressure Positive End Expiratory 5 Pressure Positive End Expiratory 5 Pressure Positive End Expiratory 5 Pressure Positive End Expiratory 5 Pressure Positive End Expiratory 5 Pressure Positive End Expiratory 5 Pressure Positive End Expiratory 5 Pressure Positive End Expiratory 5 Pressure Peak Inspiratory Airway 30 Pressure Peak Inspiratory Airway 23 Pressure Peak Inspiratory Airway 31 Pressure Peak Inspiratory Airway 24 Pressure Peak Inspiratory Airway 24 Pressure Peak Inspiratory Airway 24 Pressure Results - Laboratory Findings CBC and BMP: 12/22/18 03:55 12/22/18 03:40 ABG ABG pH 7.47 pH Units (7.32-7.45) H 12/22/18 05:00 ABG pCO2 36 mmHg (35-45) 12/22/18 05:00 ABG pO2 67 mmHg (85-104) L 12/22/18 05:00 ABG O2 Saturation 94 % (95-98) L 12/22/18 05:00 PT/INR, D-dimer PT 12.0 Seconds (9.4-12.1) 12/20/18 16:01 Abnormal lab findings: Abnormal lab results Hgb 11.2 g/dL (11.5-15.4) L 12/22/18 03:55 Hct 34.2 % (35.3-44.9) L 12/22/18 03:55 MPV 9.3 fL (9.4-12.4) L 12/22/18 03:55 ABG pH 7.47 pH Units (7.32-7.45) H 12/22/18 05:00 ABG pCO2 30 mmHg (35-45) L 12/21/18 04:30 ABG pO2 67 mmHg (85-104) L 12/22/18 05:00 ABG HCO3 30 mEq/L (21-27) H 12/20/18 23:36 ABG Total CO2 27 mEq/L (20-26) H 12/22/18 05:00 ABG O2 Saturation 94 % (95-98) L 12/22/18 05:00 ABG Base Excess 4 mEq/L (-2 to 3) H 12/21/18 00:36 VBG pH 7.26 pH Units (7.32-7.42) L 12/20/18 16:24 VBG pCO2 52 mmHg (41-51) H 12/20/18 16:24 VBG pO2 213 mmHg (25-50) H 12/20/18 16:24 6.7 % (0-5) H 12/20/18 16:01 Potassium 3.4 mEq/L (3.5-5.1) L 12/21/18 04:30 Chloride 109 mEq/L (98-107) H 12/22/18 03:40 BUN 4 mg/dL (6-20) L 12/22/18 03:40 0.52 mg/dL (0.60-1.20) L 12/22/18 03:40 Glucose 111 mg/dL (70-105) H 12/22/18 03:40 POC Glucose 137 mg/dL (70-99) H 12/21/18 23:44 Calcium 8.2 mg/dL (8.6-10.3) L 12/22/18 03:40 Venous Ioniz Calcium 1.12 mmol/L (1.15-1.35) L 12/21/18 04:55 Phosphorus 2.5 mg/dL (2.7-4.5) L 12/20/18 21:23 0.2 mg/dL (0.3-1.0) L 12/20/18 16:01 AST 11 Units/L (13-39) L 12/20/18 16:01 5.5 g/dL (6.4-8.9) L 12/20/18 16:01 2.0 g/dL (2.4-3.5) L 12/20/18 16:01 Salicylates < 2.5 mg/dL (15.0-30.0) L 12/20/18 16:01 Acetaminophen < 10 mcg/mL (10-20) L 12/20/18 16:01 U Benzodiazepines Scrn Positive ng/mL (Zlldim=653) H 12/20/18 16:30 Positive ng/mL (Cutoff= 300) H 12/20/18 16:30 Ethyl Alcohol 56 mg/dL (Less than 10) H 12/20/18 16:01 - Clinical Findings Intake & Output: Intake & Output 12/21/18 12/22/18 12/22/18 23:59 07:59 15:59 Intake Total 1500 / 3682 1600 / 2325 725 / 2325 Output Total 2225 / 3875 1800 / 5000 3200 / 5000 Balance -725 / -193 -200 / -2675 -2475 / -2675 Weight 105.1 kg Consult Discharge Plan - Plan Referrals: NONE,PCP [Primary Care Provider] - <Rosa Sharif - Last Filed: 12/22/18 21:49> Date of Encounter: 12/22/18 Objective PUL Vital signs: Last Vital Signs Temp 98.1 F 12/22/18 19:00 Pulse 96 12/22/18 19:00 Resp 17 12/22/18 19:00 BP 112/76 12/22/18 19:00 Pulse Ox 97 12/22/18 19:00 Results - Laboratory Findings CBC and BMP: 12/22/18 03:55 12/22/18 03:40 ABG ABG pH 7.47 pH Units (7.32-7.45) H 12/22/18 05:00 ABG pCO2 36 mmHg (35-45) 12/22/18 05:00 ABG pO2 67 mmHg (85-104) L 12/22/18 05:00 ABG O2 Saturation 94 % (95-98) L 12/22/18 05:00 PT/INR, D-dimer PT 12.0 Seconds (9.4-12.1) 12/20/18 16:01 Abnormal lab findings: Abnormal lab results Hgb 11.2 g/dL (11.5-15.4) L 12/22/18 03:55 Hct 34.2 % (35.3-44.9) L 12/22/18 03:55 MPV 9.3 fL (9.4-12.4) L 12/22/18 03:55 ABG pH 7.47 pH Units (7.32-7.45) H 12/22/18 05:00 ABG pCO2 30 mmHg (35-45) L 12/21/18 04:30 ABG pO2 67 mmHg (85-104) L 12/22/18 05:00 ABG HCO3 30 mEq/L (21-27) H 12/20/18 23:36 ABG Total CO2 27 mEq/L (20-26) H 12/22/18 05:00 ABG O2 Saturation 94 % (95-98) L 12/22/18 05:00 ABG Base Excess 4 mEq/L (-2 to 3) H 12/21/18 00:36 VBG pH 7.26 pH Units (7.32-7.42) L 12/20/18 16:24 VBG pCO2 52 mmHg (41-51) H 12/20/18 16:24 VBG pO2 213 mmHg (25-50) H 12/20/18 16:24 6.7 % (0-5) H 12/20/18 16:01 Potassium 3.4 mEq/L (3.5-5.1) L 12/21/18 04:30 Chloride 109 mEq/L (98-107) H 12/22/18 03:40 BUN 4 mg/dL (6-20) L 12/22/18 03:40 0.52 mg/dL (0.60-1.20) L 12/22/18 03:40 Glucose 111 mg/dL (70-105) H 12/22/18 03:40 POC Glucose 137 mg/dL (70-99) H 12/21/18 23:44 Calcium 8.2 mg/dL (8.6-10.3) L 12/22/18 03:40 Venous Ioniz Calcium 1.12 mmol/L (1.15-1.35) L 12/21/18 04:55 Phosphorus 2.5 mg/dL (2.7-4.5) L 12/20/18 21:23 0.2 mg/dL (0.3-1.0) L 12/20/18 16:01 AST 11 Units/L (13-39) L 12/20/18 16:01 5.5 g/dL (6.4-8.9) L 12/20/18 16:01 2.0 g/dL (2.4-3.5) L 12/20/18 16:01 Salicylates < 2.5 mg/dL (15.0-30.0) L 12/20/18 16:01 Acetaminophen < 10 mcg/mL (10-20) L 12/20/18 16:01 U Benzodiazepines Scrn Positive ng/mL (Frvxpm=630) H 12/20/18 16:30 Positive ng/mL (Cutoff= 300) H 12/20/18 16:30 Ethyl Alcohol 56 mg/dL (Less than 10) H 12/20/18 16:01 - Clinical Findings Intake & Output: Intake & Output 12/22/18 12/22/18 12/22/18 07:59 15:59 23:59 Intake Total 1600 / 2325 725 / 2325 Output Total 1800 / 5500 3700 / 5500 Balance -200 / -3175 -2975 / -3175 Weight 105.1 kg - Attending Attestation I saw and evaluated this patient and my medical decision-making was reviewed with the Resident Physician. I agree with the documented findings, disposition and treatment plan as described except to the extent set forth below. We independently had [id number]-ow-kots contact with the patient I spent 33 minutes of Critical Care time with this patient. It involved decision making of high complexity to assess, manipulate, and support vital organ system failure and/or to prevent further life threatening deterioration of the patient's condition. The time involved in the performance of separately reportable procedures was not counted toward critical care time. Patient seen and examined at bedside Labs, radiology, chart personally reviewed. Management was reviewed during multidisciplinary critical care rounds. HOME DEPOT REP: Patient is slowly waking up but she is following commands toxic/metabolic encephalopathy is getting better no focal neurological deficit expected patient mental status to improve significantly extubated today. Patient has significant suicidal risk once extubated patient will need sitter. And possible inpatient psychiatric evaluation. Pulm: Used x-ray showed mild bilateral vascular congestion will diurese her patient has acceptable oxygenation and ventilation patient and once the past the spontaneous breathing trial with adequate gag reflex will extubated to nasal cannula. Cards: Patient is hemodynamically stable initially came in shock due to try cyclic antidepressant overdose prolonged QT patient QT interval is normalized. FEN-GI: will keep her nothing by mouth as she is extubated today Renal: Labs and output were reviewed ID: No active infectious disease issues Heme/Onc: Labs reviewed Endo: Glucose Monitored Integ/MSK: Skin Care per routine ICU Nursing Protocol to prevent ulcers. Lines: All lines examined without evidence of infection : Dispo: If extubated and she is stable to reduce the evening we will transfer to medical telemetry. CODE:Full Code
--- NOTE | 2018-12-22 12:31 | Consult Note ---
Date of Encounter: 12/22/18 Time of Encounter: 12:19 Assessment & Recommendation (1) Schizoaffective disorder Current visit: Yes Status: Acute Assessment & Recommendation: Client denies ongoing SI but given seriousness of overdose attempt would recommend inpatient admission once medically clear. Client had recent med changes but unclear what they were at this time. Would not restart any mental health meds given polypharmacy overdose and unknown med changes this past week. Will reevaluate her home medication regimen once medically clear and transferred to inpatient psych. Qualifiers: Schizoaffective disorder type: unspecified Qualified Code(s): F25.9 - Schizoaffective disorder, unspecified History of Present Illness Requesting Physician: Marcos Tyson MD Reason for consult: overdose History of present illness: Ms. Han is a 43 year old female who was admitted secondary to a polypharmacy overdose. Required intubation to protect her airway but is now doing physically better. Able to communicate some by writing on a white board. Client admits overdose was intentional. Denies she is still suicidal and states she is grateful she was not successful. Claims she has a history of one other suicide attempt "years ago." Reports she is diagnosed with Schizoaffective Disorder and follows with mental health care on an outpatient basis. Saw her psychiatrist for an emergency appointment last week and states meds were changed at that visit. Unable to say what the changes were at this time. Client states she is normally physically healthy and she denies any AOD use beyond occasional alcohol. CC: Marcos Tyson MD Past Med Surg Social Fam HX - Past Medical History Medical history: no medical history - Past Psychiatric History Psychiatric history: Reports: depression, prior suicide attempt, schizophrenia Family psychiatric history: Unknown Family History of Suicide: Unknown - Social History Smoking Status: Current every day smoker Smokeless Tobacco Status: No Alcohol use: none Drug use: cocaine, IV Drug Use Medications & Allergies Doxepin [Sinequan] 25 mg PO HS 12/20/18 [History] Zolpidem [Ambien] 10 mg PO HS PRN 12/20/18 [History] diazePAM [Valium] 5 mg PO DAILY PRN 12/20/18 [History] Allergy/AdvReac Type Severity Reaction Status Date / Time No Known Allergies Allergy Verified 06/07/16 16:08 Review of Systems Constitutional: Reports: weakness Eyes: Denies: eye pain, vision change Ears, Nose, Throat: Reports: throat pain Cardiovascular: Denies: chest pain, palpitations, dyspnea on exertion Respiratory: Denies: cough, dyspnea, wheezes Gastrointestinal: Denies: abdominal pain, nausea, vomiting, diarrhea, constipation Genitourinary female: Denies: urgency, dysuria, frequency, abnormal menses, dyspareunia Musculoskeletal: Reports: myalgia Integumentary: Denies: rash, lesions, pruritus Neurological: Denies: headache, weakness, numbness, memory loss Endocrine: Denies: fatigue, heat or cold intolerance Hematologic/Lymphatic: Denies: easy bruising, lymphadenopathy Allergic/Immunologic: Denies: urticaria, itchy eyes Psychiatry Exam - Constitutional Vitals: Temp Pulse Resp BP Pulse Ox 98.9 F 105 22 130/109 97 12/22/18 10:55 12/22/18 11:00 12/22/18 11:00 12/22/18 11:00 12/22/18 11:00 General appearance: disheveled - Musculoskeletal Gait: other Station: relaxed Strength & Tone: normal for patient - Psychiatric Patient Orientation: Yes Person, Yes Time, Yes Place Level of alertness: Sedated Behavior: calm, cooperative Psychomotor activity: Normal Eye Contact: Maintains Eye Contact Mood Description: Depressed Affect description: congruent with mood Speech Volume: Soft/Quiet Speech pattern: mumbled Language & Vocabulary: consistent with education Thought Process: Linear Thought Content: No Suicidal ideation, No Homicidal ideation, No Overt delusions Perceptual Disturbances: No Auditory hallucinations, No Visual hallucinations Attention Span Ability: Capable of Focused Attention Memory Description: Grossly Intact Patient Reliability: Reliable Historian Fund of knowledge: Yes abstraction ability, Yes aware of current events Intelligence Estimate: Average Judgment: Limited Insight: Partial Results - Labs Labs: Laboratory Last Values WBC 7.1 K/mcL (4.3-11.1) 12/22/18 03:55 RBC 3.92 M/mcL (3.82-4.97) 12/22/18 03:55 Hgb 11.2 g/dL (11.5-15.4) L 12/22/18 03:55 Hct 34.2 % (35.3-44.9) L 12/22/18 03:55 MCV 87.2 fL (83.0-100.0) 12/22/18 03:55 MCH 28.6 pg (28.0-33.3) 12/22/18 03:55 MCHC 32.7 g/dL (31.6-35.5) 12/22/18 03:55 RDW 13.5 % (11.5-14.5) 12/22/18 03:55 Plt Count 203 K/mcL (140-400) 12/22/18 03:55 MPV 9.3 fL (9.4-12.4) L 12/22/18 03:55 Immature Gran % 0.6 % (0-4) 12/22/18 03:55 Seg Neutrophils % 68.0 % 12/22/18 03:55 24.2 % 12/22/18 03:55 5.6 % 12/22/18 03:55 1.3 % 12/22/18 03:55 0.3 % 12/22/18 03:55 4.8 K/mcL (1.6-8.9) 12/22/18 03:55 1.7 K/mcL (0.6-4.6) 12/22/18 03:55 0.4 K/mcL (0.0-1.3) 12/22/18 03:55 0.1 K/mcL (0.0-0.6) 12/22/18 03:55 0.0 K/mcL (0.0-0.2) 12/22/18 03:55 PT 12.0 Seconds (9.4-12.1) 12/20/18 16:01 INR 1.1 12/20/18 16:01 APTT 31.2 Seconds (26.0-36.0) 12/20/18 16:01 Sample Site R Radial 12/22/18 05:00 ABG pH 7.47 pH Units (7.32-7.45) H 12/22/18 05:00 ABG pCO2 36 mmHg (35-45) 12/22/18 05:00 ABG pO2 67 mmHg (85-104) L 12/22/18 05:00 ABG HCO3 26 mEq/L (21-27) 12/22/18 05:00 ABG Total CO2 27 mEq/L (20-26) H 12/22/18 05:00 ABG O2 Saturation 94 % (95-98) L 12/22/18 05:00 ABG Base Excess 3 mEq/L (-2 to 3) 12/22/18 05:00 Positive 12/22/18 05:00 VBG pH 7.26 pH Units (7.32-7.42) L 12/20/18 16:24 VBG pCO2 52 mmHg (41-51) H 12/20/18 16:24 VBG pO2 213 mmHg (25-50) H 12/20/18 16:24 VBG HCO3 23 mEq/L (21-27) 12/20/18 16:24 6.7 % (0-5) H 12/20/18 16:01 Respiration Rate 12 12/22/18 05:00 O2 Delivery Device Adult Vent 12/22/18 05:00 AF 12/22/18 05:00 Inspired O2 30.0 (1-15=lpm [id number]=%) 12/22/18 05:00 Tidal Volume 500 cc 12/22/18 05:00 PEEP 5 cm H2O 12/22/18 05:00 Sodium 141 mEq/L (136-145) 12/22/18 03:40 Potassium 3.8 mEq/L (3.5-5.1) 12/22/18 03:40 Chloride 109 mEq/L (98-107) H 12/22/18 03:40 Carbon Dioxide 25 mEq/L (23-29) 12/22/18 03:40 BUN 4 mg/dL (6-20) L 12/22/18 03:40 0.52 mg/dL (0.60-1.20) L 12/22/18 03:40 Est GFR ( Amer) > 60 (> 60) 12/22/18 03:40 Est GFR (Non-Af Amer) > 60 (> 60) 12/22/18 03:40 8 (6-26) 12/22/18 03:40 Glucose 111 mg/dL (70-105) H 12/22/18 03:40 POC Glucose 137 mg/dL (70-99) H 12/21/18 23:44 290 (280-300) 12/22/18 03:40 Calcium 8.2 mg/dL (8.6-10.3) L 12/22/18 03:40 Venous Ioniz Calcium 1.15 mmol/L (1.15-1.35) 12/22/18 04:38 Phosphorus 3.8 mg/dL (2.7-4.5) 12/22/18 03:40 Magnesium 2.0 mg/dL (1.6-2.6) 12/22/18 03:40 0.2 mg/dL (0.3-1.0) L 12/20/18 16:01 0.0 mg/dL (0.0-0.2) 12/20/18 16:01 0.2 mg/dL (0.0-1.2) 12/20/18 16:01 AST 11 Units/L (13-39) L 12/20/18 16:01 ALT 13 Units/L (7-52) 12/20/18 16:01 55 Units/L (34-104) 12/20/18 16:01 92 Units/L (30-223) 12/20/18 16:01 5.5 g/dL (6.4-8.9) L 12/20/18 16:01 3.5 g/dL (3.5-5.7) 12/20/18 16:01 2.0 g/dL (2.4-3.5) L 12/20/18 16:01 1.8 (1.1-2.2) 12/20/18 16:01 TSH 2.285 mcIU/mL (0.340-5.600) 12/20/18 16:01 Yellow (Yellow) 12/20/18 16:38 Clear (Clear) 12/20/18 16:38 6.0 pH Units (5.0-8.0) 12/20/18 16:38 Ur Specific [place] 1.010 (1.010-1.025) 12/20/18 16:38 Negative mg/dL (Neg-Trace) 12/20/18 16:38 Normal mg/dL (Normal) 12/20/18 16:38 Negative mg/dL (Negative) 12/20/18 16:38 Negative (Negative) 12/20/18 16:38 Negative (Negative) 12/20/18 16:38 Negative (Negative) 12/20/18 16:38 Normal mg/dL (Normal) 12/20/18 16:38 Ur Leukocyte Esterase Negative (Negative) 12/20/18 16:38 Ur Culture Indicated? NO (NO) 12/20/18 16:38 Negative (Negative) 12/20/18 16:38 Salicylates < 2.5 mg/dL (15.0-30.0) L 12/20/18 16:01 Negative ng/mL (Stlddz=913) 12/20/18 16:30 Acetaminophen < 10 mcg/mL (10-20) L 12/20/18 16:01 Ur Barbiturates Screen Negative ng/mL (Tdoazu=504) 12/20/18 16:30 Ur Phencyclidine Scrn Negative ng/mL (Cutoff=25) 12/20/18 16:30 Ur Amphetamines Screen Negative ng/mL (Kujpnj=3418) 12/20/18 16:30 U Benzodiazepines Scrn Positive ng/mL (Jensof=196) H 12/20/18 16:30 Positive ng/mL (Cutoff= 300) H 12/20/18 16:30 U Marijuana (THC) Screen Negative ng/mL (Cutoff = 50) 12/20/18 16:30 Ur Drug Screen Interp See Below 12/20/18 16:30 Ethyl Alcohol 56 mg/dL (Less than 10) H 12/20/18 16:01 Consult Discharge Plan - Plan Referrals: NONE,PCP [Primary Care Provider] -
--- NOTE | 2018-12-22 14:37 | Electrocardiograph Report ---
[address] [place], [place] [address] Test Date: 2018-12-21 Pat Name: Cherelle Han Department: 109 Room: 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
[2018-12-22] MEDS ORDERED: Naloxone 0.4 MG/ML INJ IVP PRN (16:43)
[2018-12-23] MEDS: *HR* Heparin 5,000 UNIT/ML VIAL SQ SCH ×2 (06:04→13:43)
[2018-12-23] MEDS: Ringers Solution, Lactated 1,000 ML IVC SCH (07:06)
[2018-12-23 07:55] VITALS: BP 107/68
[2018-12-23] MEDS ORDERED: Thiamine (B-1) 100 MG TABLET PO SCH (09:00)
[2018-12-23] MEDS ORDERED: cephALEXin 500 MG CAPSULE PO SCH (09:30)
--- NOTE | 2018-12-23 09:30 | Discharge Summary ---
Orders not resulted at time of discharge: Pending orders 12/20/18 23:14 ECG 12 lead ECG [ECG] Q2H 12/21/18 07:14 ECG 12 lead ECG [ECG] Q2H 12/21/18 08:02 ECG 12 lead ECG [ECG] Stat Date of Encounter: 12/23/18 Time of Encounter: 09:28 - Discharge Diagnosis (1) DVT prophylaxis Priority: Secondary Status: Acute (2) Hypotension Priority: Primary Status: Resolved Qualifiers: Hypotension type: hypotension due to drug Qualified Code(s): I95.2 - Hypotension due to drugs (3) Intentional benzodiazepine overdose Priority: Secondary Status: Chronic Qualifiers: Encounter type: initial encounter Qualified Code(s): T42.4X2A - Poisoning by benzodiazepines, intentional self-harm, initial encounter (4) Respiratory failure Priority: Secondary Status: Resolved Qualifiers: Chronicity: acute Respiratory failure complication: hypoxia Qualified Code(s): J96.01 - Acute respiratory failure with hypoxia (5) Suicidal ideation Priority: Secondary Status: Acute (6) Suicide attempt by drug overdose Priority: Primary Status: Acute (7) Cellulitis of left hand Priority: Secondary Status: Acute Hospital course: Ms. Han is a 43 year old female history of schizophrenia and IVDU per chart review. She presented to the emergency department via EMS due to suspected drug overdose. EMS was called to her home, where they found her unresponsive. Family reportedly provided EMS with several empty medication bottles, with prescriptions of the lzolipidem 10mg, diazepam 5mg, and doxepin 25mg. Patient was administered narcan en route, with no improvement in responsiveness. Upon arrival to the emergency department, patient was noted to be tachycardic, with HR 116 bpm. Initial BP was 102/59; however, blood pressure began to decline, prompting insertion of right IJ CVC for pressor support. Patient was intubated for airway protection. Patient admitted due to above mentioned problems. On 12/22/18 her respiratory status improved, patient was extubated and transferred to a regular floor. Patient is clinically stable to be transferred to for continuity of care. - Time Spent with Patient Total time spent providing and/or coordinating discharge services: Time spent: Greater than 30 minutes (35) - Discharge Medications Prescriptions: New cephALEXin [Keflex] 500 mg PO TID 5 Days #15 capsule Continued Doxepin [Sinequan] 25 mg PO HS diazePAM [Valium] 5 mg PO DAILY PRN PRN Reason: Anxiety Zolpidem [Ambien] 10 mg PO HS PRN PRN Reason: Insomnia Home Medications: Doxepin [Sinequan] 25 mg PO HS 12/20/18 [History] Zolpidem [Ambien] 10 mg PO HS PRN 12/20/18 [History] diazePAM [Valium] 5 mg PO DAILY PRN 12/20/18 [History] cephALEXin [Keflex] 500 mg PO TID 5 Days #15 capsule 12/23/18 [Rx] Allergies/Adverse Reactions: Allergy/AdvReac Type Severity Reaction Status Date / Time No Known Allergies Allergy Verified 06/07/16 16:08 Date of admission: 12/20/18 19:16 Primary care physician: PCP NONE Consults: 12/21/18 00:59 Consult to Critical Care [CONS] Routine Consulting Provider: [facility] Jaquelin Reason for Consult: TCA overdose; currently intubated Time Notified: 01:00 Call Completed: No 12/22/18 11:28 Consult to Psychiatry [CONS] Routine Consulting Provider: Psychiatry Jaquelin Reason consult: Other Other reason and/or additional details: Recent suicide attempt with medi cation overdose - Constitutional Vitals: Temp Pulse Resp BP Pulse Ox 99.0 F 89 16 107/68 92 12/23/18 07:54 12/23/18 07:54 12/23/18 07:54 12/23/18 07:54 12/23/18 07:54 Exam: Vitals: Reviewed General: Alert and oriented x4. In no distress. Skin: Normal color, no rash, no lesions. HEENT: EOM, pupils equal, round and reactive. Cardiovascular: RRR, normal S1 & S2, no rubs, murmurs or gallops. Lungs: CTA b/l, no wheezes or crackles. Abdomen: Obese, soft, non-tender, no rigidity. Extremities: mild edema and erythema on the left hand. Neurological: Normal cognition and motor skills. Rest of the physical exam is non contributory - Patient Status Disposition: Transfer Psychiatric Hosp Condition: Good Functional capacity at discharge: independent ambulation Overall status at discharge: patient is back to baseline - Discharge Instructions Follow Up With: NONE,PCP [Primary Care Provider] - - Diet and Activity Activity: resume usual activities as tolerated Diet: low salt diet
--- NOTE | 2018-12-23 09:39 | Electrocardiograph Report ---
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
--- NOTE | 2018-12-23 09:39 | Electrocardiograph Report ---
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
== END 2018-12-23 13:51 | DRG 917 ==
LOC: EMEROOARM 15:29 → ICNU 19:16 → SUATTDRO 19:16 → ICNU 19:50 → 2ANU 12-22 18:10
PROVIDERS: ADMIT Family Medicine; ATTEND Internal Medicine

== ENCOUNTER 2018-12-23 13:30 | Inpatient (IN) ==
[2018-12-23] MEDS ORDERED: Acetaminophen 325 MG TABLET PO PRN (13:48)
[2018-12-23] MEDS ORDERED: Mag Hydrox/Al Hydrox/Simeth 30 ML UDC PO PRN (13:48)
[2018-12-23] MEDS ORDERED: hydrOXYzine pamoate 25 MG CAPSULE PO PRN (13:48)
[2018-12-23] MEDS ORDERED: *HR* LORazepam 1 MG TABLET PO PRN (13:48)
[2018-12-23] MEDS ORDERED: Haloperidol Lactate 5 MG/ML VIAL IM PRN (13:48)
[2018-12-23] MEDS ORDERED: MOM Conc 10 ML UD.LIQ PO PRN (13:48)
[2018-12-23] MEDS ORDERED: *HR* LORazepam 2 MG/ML VIAL IM PRN (13:48)
[2018-12-23] MEDS ORDERED: traZODone 50 MG TABLET PO PRN (13:48)
[2018-12-23] MEDS: cephALEXin 500 MG CAPSULE PO SCH (20:07)
[2018-12-24] MEDS: cephALEXin 500 MG CAPSULE PO SCH ×3 (09:37→20:30)
--- NOTE | 2018-12-24 10:55 | Psychiatry History & Physical ---
Date of Encounter: 12/24/18 Time of Encounter: 10:44 History of Present Illness Patient Stated Chief Complaint: overdose Medicare Admission Attestation: For traditional Medicare patients the provided hospital inpatient services are reasonable and necessary and in the case of services not specified as inpatient-only under 42 CFR 419.22 (n), that they are appropriately provided as inpatient services in accordance 42 CFR 412.3. For Critical Access Hospital the patient may reasonably be expected to be discharged or transferred to a hospital within 96 hours after admission to the Critical Access Hospital. Admitted From: Home Plans for Post Hospital Care: Home History of Present Illness: Ms. Han is a 43 year old female who was admitted to the medical floor following a polypharmacy overdose of Ambien, Doxepin, and Valium. See psychiatry consult note from that admission for more information. Client was triggered to overdose due to marital conflicts with her . He started spending time with a 19y/o female he works with and client has been upset that he might be cheating on her. Since client's overdose she reports he has been supportive and that he and her children just want her home. Client has a long history of mental illness that has been stable for the last several years. Client is diagnosed with Schizoaffective Disorder. For a time she was in and out of hospitals and client states she was in a state hospital with psychosis for an extended period of time when she was younger. Client has a history of multiple suicide attempts as well. However, her last suicide attempt was in 1993 and her last hospitalization was in 2001. Client was previously addicted to cocaine but got herself sober and she has had close to ten years sobriety. Client is unsure what made everything fall apart for her recently but she thinks recent med changes precipitated her getting worse. Client states she was stable on Wellbutrin, Latuda, Topamax, and Xanax for years. However, when she started fretting about her 's fidelity she asked her outpatient psychiatrist to put her on Celexa instead of the Wellbutrin and to switch her to Valium from the Xanax. These changes were made approx five days before she overdosed. At this point client just wants to go back to what has kept her stable for the longest period of time. She is willing to stick with the Valium but wants to restart the Wellbutrin, Latuda, and Topamax. Client admits she has anger problems and that is why she chose the Celexa to begin with. Her daughter takes Celexa and finds it helpful and client did research on psych meds that help with anger. Discussed Depakote which she has never tried. However, she is fearful of weight gain and she does not want any other med changes right now given everything that has happened. Will discuss Depakote with her outpatient provider down the road. Client is physically healthy but obese. Well linked with community services and has a therapist she likes. Support from and children. No longer experiencing SI, intent, or plan. Can likely be discharged tomorrow. Client is expecting a visit from her karolina. If this goes well anticipate discharge home tomorrow. Past Med Surg Social Fam HX - Past Medical History Medical history: no medical history - Past Psychiatric History Psychiatric history: Reports: depression, prior suicide attempt, schizophrenia, previous psychiatric hospitalization Family psychiatric history: Yes Family Psychiatric History Details: mother-hospitalizations. daughter takes Celexa Family History of Suicide: Unknown - Social History Smoking Status: Current every day smoker Smokeless Tobacco Status: No Alcohol use: none Drug use: cocaine, IV Drug Use - Family History Mother Living Status: Hx Family Cardiac Disorders: No Hx Family Respiratory Disorders: No Hx Family Cancer: No Hx Family GI Disorders: Yes Hx Family Genitourinary Disorders: No Hx Family Endocrine Disorder: No Hx Family Musculoskeletal Disorders: No Hx Family Neuromuscular Disorders: No Hx Family Neurologic Disorders: No Hx Family HEENT Disorders: No Hx Family Autoimmune Disorders: No Hx Family Reproductive Disorders: No Hx Family Psychosocial Disorders: Yes Hx Family Medical Disorders: No Medications & Allergies Doxepin [Sinequan] 25 mg PO HS 12/20/18 [History] Zolpidem [Ambien] 10 mg PO HS PRN 12/20/18 [History] diazePAM [Valium] 5 mg PO DAILY PRN 12/20/18 [History] cephALEXin [Keflex] 500 mg PO TID 5 Days #15 capsule 12/23/18 [Rx] Allergy/AdvReac Type Severity Reaction Status Date / Time No Known Allergies Allergy Verified 06/07/16 16:08 Review of Systems Constitutional: Denies: fever, chills, weakness, weight change Eyes: Denies: eye pain, vision change Ears, Nose, Throat: Denies: ear pain, throat pain, dental pain, hearing loss, congestion Cardiovascular: Denies: chest pain, palpitations, dyspnea on exertion Respiratory: Denies: cough, dyspnea, wheezes Gastrointestinal: Denies: abdominal pain, nausea, vomiting, diarrhea, constipation Genitourinary female: Denies: urgency, dysuria, frequency, abnormal menses, dyspareunia Musculoskeletal: Denies: joint swelling, joint pain Integumentary: Denies: rash, lesions, pruritus Neurological: Denies: headache, weakness, numbness, memory loss Endocrine: Denies: fatigue, heat or cold intolerance Hematologic/Lymphatic: Denies: easy bruising, lymphadenopathy Allergic/Immunologic: Denies: urticaria, itchy eyes Exam - HEENT Head exam IM: Present: atraumatic Eye exam IM: Present: EOMI, normal appearance, PERRL ENT exam IM: Present: normal exam - Neurological Neurological exam: Present: CN II-XII intact - Respiratory Respiratory exam IM: Present: CTAB - GI/Abdominal GI/Abdominal exam IM: Present: normal bowel sounds, soft. Absent: tenderness - Extremities Extremities exam IM: Present: full ROM - Skin Skin exam IM: Present: dry, warm - Constitutional Vitals: Temp Pulse Resp BP Pulse Ox 98.4 F 89 20 122/87 95 12/24/18 07:00 12/24/18 07:00 12/24/18 07:00 12/24/18 07:00 12/24/18 07:00 General appearance: obese - Musculoskeletal Gait: normal Station: relaxed Strength & Tone: normal for patient - Psychiatric Patient Orientation: Yes Person, Yes Time, Yes Place Level of alertness: Alert Behavior: calm, cooperative Psychomotor activity: Normal Eye Contact: Maintains Eye Contact Mood Description: Depressed, Irritable Affect description: congruent with mood Speech Volume: Normal Speech pattern: normal rate, normal rhythm, normal tone, fluent, spontaneous Language & Vocabulary: consistent with education Thought Process: Linear, Goal Oriented Thought Content: No Suicidal ideation, No Homicidal ideation, No Overt delusions Perceptual Disturbances: No Auditory hallucinations, No Visual hallucinations Attention Span Ability: Capable of Focused Attention Memory Description: Grossly Intact Patient Reliability: Reliable Historian Fund of knowledge: Yes abstraction ability, Yes average, Yes aware of current events Intelligence Estimate: Average Judgment: Limited Insight: Partial Assessment and Plan (1) Schizoaffective disorder Current visit: No Status: Acute Plan: Admit inpatient for safety and stabilization, Close observation, Suicide Precautions per unit protocol, Encourage participation in unit milieu, Group Therapy, Monitor sleep, Monitor appetite Risks, benefits, side effects, alternatives discussed w/pt: Yes Patient agreeable to treatment: Yes Plans for Post Hospital Care: Home Estimated Length of Stay (Days): 3 Qualifiers: Schizoaffective disorder type: unspecified Qualified Code(s): F25.9 - Schizoaffective disorder, unspecified
[2018-12-24] MEDS: Topiramate 100 MG TABLET PO SCH ×2 (11:20→20:29)
[2018-12-24] MEDS: BuPROPion XL (24 HR) 150 MG TABLET PO SCH (11:20)
[2018-12-24] MEDS: diazePAM 5 MG TABLET PO SCH ×2 (11:20→20:29)
[2018-12-24] MEDS: GuaiFENesin Liq 200 MG/10 ML UDC PO PRN ×2 (12:28→21:45)
[2018-12-24] MEDS: Neosporin OINT 15 GM TUBE TP SCH ×3 (12:29→21:10)
[2018-12-25] MEDS: GuaiFENesin Liq 200 MG/10 ML UDC PO PRN (03:30)
[2018-12-25] MEDS: BuPROPion XL (24 HR) 150 MG TABLET PO SCH (08:06)
[2018-12-25] MEDS: Neosporin OINT 15 GM TUBE TP SCH (08:06)
[2018-12-25] MEDS: Topiramate 100 MG TABLET PO SCH (08:06)
[2018-12-25] MEDS: cephALEXin 500 MG CAPSULE PO SCH (08:06)
[2018-12-25] MEDS: diazePAM 5 MG TABLET PO SCH (08:06)
[2018-12-25 08:51] VITALS: BP 116/57
--- NOTE | 2018-12-25 09:02 | Discharge Summary ---
Date of Encounter: 12/25/18 Time of Encounter: 08:59 Diagnosis - Discharge Diagnosis (1) Schizoaffective disorder Status: Acute Qualifiers: Schizoaffective disorder type: unspecified Qualified Code(s): F25.9 - Schizoaffective disorder, unspecified Medications - Discharge Medications Zolpidem [Ambien] 10 mg PO HS PRN 12/20/18 [History] cephALEXin [Keflex] 500 mg PO TID 5 Days #15 capsule 12/23/18 [Rx] BuPROPion XL (24 HR) [Wellbutrin Xl] 150 mg PO DAILY tab.er.24h 12/25/18 [Rx] Lurasidone [Latuda] 120 mg PO HS tablet 12/25/18 [Rx] Marciano/Poly/Harriett OINT [Triple Antibiotic Ointment] 1 appl TP TID tube 12/25/18 [Rx] Topiramate [Topamax] 100 mg PO BID tablet 12/25/18 [Rx] diazePAM [Valium] 5 mg PO BID tablet 12/25/18 [Rx] Allergy/AdvReac Type Severity Reaction Status Date / Time No Known Allergies Allergy Verified 06/07/16 16:08 Provider Date of admission: 12/23/18 13:30 Primary care physician: PCP NONE Discharging clinician: Rika Welch Psychiatry Exam - Constitutional Vitals: Temp Pulse Resp BP Pulse Ox 97.1 F L 97 20 116/57 96 12/25/18 08:50 12/25/18 08:50 12/25/18 08:50 12/25/18 08:50 12/25/18 08:50 General appearance: obese - Musculoskeletal Gait: normal Station: relaxed Strength & Tone: normal for patient - Psychiatric Patient Orientation: Yes Person, Yes Time, Yes Place Level of alertness: Alert Behavior: calm, cooperative Psychomotor activity: Normal Eye Contact: Maintains Eye Contact Mood Description: Euthymic/stable Affect description: congruent with mood, full range Speech Volume: Normal Speech pattern: normal rate, normal rhythm, normal tone, fluent, spontaneous Language & Vocabulary: consistent with education Thought Process: Linear, Goal Oriented Thought Content: No Suicidal ideation, No Homicidal ideation, No Overt delusions Perceptual Disturbances: No Auditory hallucinations, No Visual hallucinations Attention Span Ability: Capable of Focused Attention Memory Description: Grossly Intact Patient Reliability: Reliable Historian Fund of knowledge: Yes abstraction ability, Yes aware of current events Intelligence Estimate: Average Judgment: Fair Insight: Partial Hospital Course Hospital course: Ms. Han is a 43 year old female who was admitted following a polypharmacy overdose. Please see H&P and psychiatry consult for more details. Client improved in the short time she was on 1A. She continually expressed remorse for her actions. She was triggered by her 's relationship with a co-worker but they were able to work things out while client was in the hospital. Client states the visit with her last night went well. She has been pleasant and cooperative on the unit. She did not sleep well but consistently has trouble sleeping at home as well. Mood is good today. Bright and future oriented. Denies SI, intent, or plan. Denies HI/AH/VH. Well linked with outpatient services and she has a positive rapport with her outpatient psychiatrist and therapist. Client had recent med changes on an outpatient basis that she reports did not work for her so her old med regimen was started here with good clinical effect. Her Xanax was changed to Valium without difficulty but client otherwise responded well to her usual regimen. Total time spent with client greater than 30 minutes. Patient was educated of her diagnosis and the risks, benefits, and side effects of this treatment and alternative treatment options and was monitored for responsiveness and side effects. Mood, anxiety, sleep, appetite, and interest improved, as did future orientation. Self-harm thoughts subsided, thinking cleared, psychosis resolved, and mood stabilized. Patient was able to attend both individual and group therapy sessions as well as meeting with the psychiatrist daily and urged to discuss any medication or treatment issues or other concerns. The patient was educated primarily by verbal means about their diagnosis and manifestations in their life. The option for treatment including group and individual therapy programming was offered to the patient in the use of medications with all their potential risks, benefits, and side effects were discussed with the patient at length. The patient was given the opportunity to ask questions and was noted to participate in the treatment in the planning process. The patient felt ready and eager to be discharged from the inpatient psychiatric unit to continue on with treatment as an outpatient. The patient agreed that she is safe for this disposition. The patient was considered to be able to participate in informed consent and decision making with respect to medical, legal, and financial issues of the time of discharge. At the time of discharge the patient adamantly denied any concerns for lethality including suicidal or homicidal thoughts ideations or plans and was future oriented toward ongoing mental health care, medical follow-up and sobriety. - Time Spent with Patient Total time spent providing and/or coordinating discharge services: Assessment and Plan - Patient/Caregiver Discharge Instructions Activity: resume usual activities as tolerated Diet: low fat, low cholesterol - Follow up Plan Follow up with: Rachael Ramirez [facility] [Outside] (Message left with Sarah to schedule follow-up.) Functional capacity at discharge: independent ambulation Overall status at discharge: Stable Disposition: Home, Self-Care Quality - Multiple Antipsychotics Patient discharged on 2 or more antipsychotic medications: No Procedures - Procedures Procedures: Medication Management, Crisis Stabilization, Supportive Therapy, Group Therapy
== END 2018-12-25 10:30 | disposition home or self-care (01) | DRG 885 ==
LOC: 1ANU 13:30
PROVIDERS: ADMIT Psychiatry & Neurology Psychiatry; ATTEND Psychiatry & Neurology Psychiatry